=== PATIENT | female | born 1935 | race Caucasian/White ===

== ENCOUNTER 2016-10-12 14:34 | Outpatient (CLI) ==
[2014-03-06 12:50] VITALS: BMI 23.1
[2016-10-12 15:12] LABS: HEMATOCRIT 37.3 % (37.0-47.0); HEMOGLOBIN 12.2 g/dl (12.0-16.0); MEAN CORPUSCULAR HEMOGLOBIN 29.4 pg (27.0-31.0); MEAN CORPUSCULAR HGB CONC 32.7 (31.8-35.4); MEAN CORPUSCULAR VOLUME 89.9 fl (81.0-99.0); RED BLOOD COUNT 4.15 10^6/ul (4.20-5.40); WHITE BLOOD COUNT 8.58 K/ul (4.6-10.2)
[2016-10-12 15:15] LABS: ADD URINE MICROSCOPIC NO; BILIRUBIN,URINE Negative (NEGATIVE); KETONES,URINE Negative (NEGATIVE); LEUKOCYTE ESTERASE ,URINE Negative (NEGATIVE); NITRITE,URINE Negative (NEGATIVE); PROTEIN,URINE Negative (NEGATIVE); URINE, BLOOD Negative (NEGATIVE)
[2016-10-12 15:41] LABS: ALBUMIN 3.9 g/dL (3.4-5.0); ALBUMIN/GLOBULIN RATIO 1.11; ANION GAP 18.2; BILIRUBIN,TOTAL 0.39 mg/dL (0.00-1.20); BUN/CREATININE RATIO 30.37; CALCIUM 9.4 mg/dL (8.2-10.2); CREATININE 1.58 mg/dL (0.60-1.30); PHOSPHORUS 3.2 mg/dL (2.8-4.1); POTASSIUM 4.2 mmol/L (3.5-5.10); TOTAL PROTEIN 7.4 g/dL (5.8-8.1); URIC ACID 9.6 mg/dL (2.4-6.0)
[2016-10-13 08:16] LABS: URINE CREATINE 82.5 mg/dL (Not Estab.)
== END 2016-10-12 14:35 | disposition home or self-care (01) ==
LOC: LAB 14:34
PROVIDERS: ATTEND Nurse Practitioner Family
DX: N18.3 Chronic kidney disease, stage 3 (moderate) (principal)
CPT/HCPCS: 36415; 80053; 81001; 82306; 82570; 83970; 84100; 84156; 84550; 85027

== ENCOUNTER 2017-02-25 16:14 | Outpatient (CLI) ==
[2014-03-06 12:50] VITALS: BMI 23.1
[2017-02-25 16:31] LABS: BASOPHILS # (AUTO) 0.1 K/uL (0-0.2); BASOPHILS % (AUTO) 0.6 % (0.0-3.0); EOSINOPHILS % (AUTO) 0.1 % (0.0-7.0); HEMATOCRIT 36.8 % (37.0-47.0); HEMOGLOBIN 12.2 g/dl (12.0-16.0); IMMATURE GRANULOCYTE % (AUTO) 0.3 % (0.0-5.0); LYMPHOCYTES # (AUTO) 1.1 K/uL (0.60-3.4); LYMPHOCYTES % (AUTO) 11.9 (10.0-50.0); MEAN CORPUSCULAR HGB CONC 33.2 (31.8-35.4); MEAN CORPUSCULAR VOLUME 90.6 fl (81.0-99.0); MONOCYTES # (AUTO) 0.3 K/uL (0.4-2.0); MONOCYTES % (AUTO) 3.2 (0-10); NEUTROPHILS # (AUTO) 7.8 K/ul (2.0-6.9); NEUTROPHILS % (AUTO) 83.9; PLATELET COUNT 348 10^3/uL (140-440); RED BLOOD COUNT 4.06 10^6/ul (4.20-5.40)
[2017-02-25 16:36] LABS: BILIRUBIN,URINE Negative (NEGATIVE); KETONES,URINE Negative (NEGATIVE); LEUKOCYTE ESTERASE ,URINE Negative (NEGATIVE); NITRITE,URINE Negative (NEGATIVE); PROTEIN,URINE Negative (NEGATIVE); URINE, BLOOD Negative (NEGATIVE)
[2017-02-25 16:37] LABS: ADD URINE MICROSCOPIC NO
[2017-02-25 17:09] LABS: ALBUMIN 3.8 g/dL (3.4-5.0); ALBUMIN/GLOBULIN RATIO 0.9; ANION GAP 12.9; BILIRUBIN,TOTAL 0.44 mg/dL (0.00-1.20); BUN/CREATININE RATIO 24.06; CALCIUM 9.9 mg/dL (8.2-10.2); CHOL/HDL RATIO 2.4 (4.5-5.5); CREATININE 1.33 mg/dL (0.60-1.30); POTASSIUM 3.9 mmol/L (3.5-5.10)
== END 2017-02-25 16:15 | disposition home or self-care (01) ==
LOC: LAB 16:14
PROVIDERS: ATTEND General Practice
DX: E11.29 Type 2 diabetes mellitus with other diabetic kidney complication (principal); I10 Essential (primary) hypertension; E55.9 Vitamin D deficiency, unspecified; Z79.899 Other long term (current) drug therapy
CPT/HCPCS: 36415; 80053; 80061; 81001; 82306; 83036; 85025

== ENCOUNTER 2017-04-08 14:56 | Outpatient (CLI) ==
[2014-03-06 12:50] VITALS: BMI 23.1
--- NOTE | 2017-04-08 19:04 | MRI ---
EXAM: Brain MRI without contrast. HISTORY: Chronic migraines. COMPARISON: Head CT 05/03/[address] 12/20/2012. TECHNIQUE: Multiplanar, multisequence MR images were acquired of the brain without contrast. FINDINGS: The midline structures are central and there is no cerebellar tonsillar ectopia. There is a focal area of soft tissue thickening involving the odontoid process and soft tissues anter ior and posterior to the odontoid including the transverse ligament. There is erosion of the odontoid process and effacement of the anterior subarachnoid space without spinal stenosis. There is curvili near focal discontinuity at the base of the odontoid process and mild bright GRE signal on the saenz l gradient echo sequence. On the sagittal T1W sequence, there is focal discontinuity of the anterior cortical margin of the odontoid at the junction of the odontoid process and base of the odontoid. Th ere is intermediate T1 soft tissue signal in the odontoid process and its base that merges with soft tissue signal around the odontoid and transverse ligament. These findings are compatible with a type 2 odontoid fracture that may be subacute. Cervical spine CT scan is advised to further define the carlton johnny. The ventricles, sulci and cisterns are mildly prominent compatible with age related involutional acosta ges. There are no abnormal extra-axial fluid collections. The brain parenchyma has no restricted diffusion to suggest acute hypoperfusion or infarction. There is a chronic lacuna or dilated perivascular space in the right cerebellum. Small T2 hyperintensitie s are present in the supratentorial white matter. These are most numerous in the centrum semiovale a nd along the bodies of the lateral ventricle bilaterally. 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 Pulsation artifact is noted in the posterior fossa on the axial FLAIR se quence. There is no abnormal dark gradient echo signal to suggest intracranial hemorrhage. The corpu s callosum has a normal configuration. The pituitary gland is unremarkable. No intraorbital masses are present. There has been previous lens surgery bilaterally. As visualized , the paranasal sinuses, middle ears and mastoids are unremarkable. Flow voids are present in the major intracranial arteries and dural venous sinuses. IMPRESSION: 1. Partially visualized focal discontinuity is present in the odontoid at its base compatible with a type 2 odontoid fracture that may be subacute. This is associated with surrounding intermediate T1 and T2 soft tissue signal that incorporates the transverse ligament without central canal stenosis. Cervical spine CT scan is advised and neurosurgical consultation may be considered. 2. Age related involutional changes and mild to moderate chronic ischemic small vessel disease. 3. Chronic lacuna right cerebellum. 4. No acute cerebral infarct. Critical results discussed with the emergency room physician Dr. Anthony Robbins at 6:55 p.m.
== END 2017-04-08 14:57 | disposition home or self-care (01) ==
LOC: RAD 14:56
PROVIDERS: ATTEND Emergency Medicine
DX: G43.709 Chronic migraine without aura, not intractable, without status migrainosus (principal)

== ENCOUNTER 2017-04-27 08:24 | Outpatient (CLI) ==
[2014-03-06 12:50] VITALS: BMI 23.1
[2017-04-27 09:10] LABS: CREATININE 1.34 mg/dL (0.60-1.30)
--- NOTE | 2017-04-27 12:58 | MRI ---
EXAM: Cervical spine MRI without contrast. HISTORY: Closed odontoid fracture. COMPARISON: Cervical spine radiographs 12/19/2012, nuclear medicine bone scan 03/01/2016 and brain M RI 04/08/2017. TECHNIQUE: Multiplanar, multisequence MR images were acquired of the cervical spine without contrast . The study is degraded by patient motion on some sequences. Contrast was not administered. FINDINGS: There is no cerebellar tonsillar ectopia. The cervical cord has no abnormal T2 signal or syrinx. There is straightening of the usual cervical lordosis and 2.2 mm anterolisthesis of C3 on C4 and 2.6 mm anterolisthesis of C4 on C5. There has been a partial corpectomy at C6 and there are ACD F's at C5-6 and C6-7. Metallic artifact is present consistent with anterior screw and plate fixation . At C2, there is a type 2 odontoid fracture and focal nodular intermediate T1, bright STIR soft tis ike signal involving the odontoid process which is largely eroded. This extends to the base of the o dontoid. And to the anterior ring of C1. The bright FLAIR soft tissue involves the transverse ligame nt with effacement of the ventral thecal sac at C1 without central canal stenosis. The nodular soft tissue thickening involving the odontoid process is better shown on the current study. However, allo wing for differences is in technique, this is unchanged compared to the prior brain MRI. Cervical spi ne CT scan could better define the fracture. There is osteophytosis with disc space narrowing and de generative endplate changes at C3-4, C4-5 and C7-T1. Visualized lung apices are clear. C1-2: Nodular soft tissue signal is present eroding the odontoid process and this merges with the tr ansverse ligament to efface the left anterior subarachnoid space without impingement on the cord. Th ere is no central canal stenosis. AP diameter of the thecal sac is 11.8 mm. C2-3: The intervertebral disc is normal. There is minor left uncovertebral hypertrophy and mild to moderate left hypertrophic facet arthropathy. There is mild to moderate left neural foraminal stenos is. C3-4: There is anterolisthesis of C3 and C4 which produces a dorsal spondylotic ridge and probable s mall central disc protrusion. Bilateral uncovertebral hypertrophy is present, greater on the left an d there is mild bilateral hypertrophic facet arthropathy. These findings produce mild spinal stenosi s and severe right and moderately severe left neural foraminal stenosis. AP diameter of the thecal s ac is 8.6 mm. C4-5: There is retrolisthesis of C5 with respect to C4 and there is a diffuse disc osteophyte comple x, left uncovertebral hypertrophy and moderate left hypertrophic facet arthropathy. There is mild to moderate right and severe left neural foraminal stenosis. There is minor central canal stenosis. A P diameter of the thecal sac is 9.5 mm. C5-6: There are postoperative ACDF changes. Left uncovertebral hypertrophy is present and there is mild to moderate right and mild left neural foraminal stenosis. There is no central canal stenosis. C6-7: There is a minor central bony ridge and left uncovertebral hypertrophy. There is moderate lef t and mild to moderate right neural foraminal stenosis. C7-T1: The intervertebral disc is normal. There is mild right neural foraminal stenosis. On the sagittal sections, there is a central disc protrusion at T2-3. IMPRESSION: 1. Closed T2 odontoid fracture with intermediate T1, bright STIR soft tissue signal eroding the odon toid process and incorporating the surrounding transverse ligament to efface the ventral thecal sac w ithout central canal stenosis. Clinical considerations include an inflammatory arthritis such as rhe umatoid or psoriatic arthritis or tumor. Given the lack of cancer history, arthritis is favored. The se findings were previously noted on a brain MRI from 04/08/2017. 2. Mild to moderate cervical degenerative spondylosis with minor C4-5 and mild C3-4 spinal stenosis. 3. Small central disc herniation T2-3. 4. C5-6 and C6-7 ACDF's. 5. Multilevel foraminal stenosis. Cervical CT myelography could better define the osseous anatomy.
== END 2017-04-27 08:25 | disposition home or self-care (01) ==
LOC: RAD 08:24
PROVIDERS: ATTEND Nurse Practitioner Family
DX: S12.100A Unspecified displaced fracture of second cervical vertebra, initial encounter for closed fracture (principal); M53.82 Other specified dorsopathies, cervical region; R51 Headache
CPT/HCPCS: 36415; 82565

== ENCOUNTER 2017-08-16 10:40 | Outpatient (CLI) ==
[2014-03-06 12:50] VITALS: BMI 23.1
== END 2017-08-16 10:41 | disposition home or self-care (01) ==
LOC: FCC-LAB 10:40
PROVIDERS: ATTEND General Practice
DX: E11.29 Type 2 diabetes mellitus with other diabetic kidney complication (principal); E55.9 Vitamin D deficiency, unspecified; I10 Essential (primary) hypertension; I48.91 Unspecified atrial fibrillation; N18.9 Chronic kidney disease, unspecified; Z79.899 Other long term (current) drug therapy
CPT/HCPCS: 36415; 80053; 80061; 81001; 82306; 85025

== ENCOUNTER 2017-10-03 10:56 | Outpatient (CLI) ==
[2014-03-06 12:50] VITALS: BMI 23.1
--- NOTE | 2017-10-03 11:55 | MAMMO ---
EXAM: Digital screening mammogram. Tomosynthesis was performed. HISTORY: Screening COMPARISON: 05/03/2014 FINDINGS: Digital MLO and CC views of the right and left breast were performed. Tomosynthesis was performed. Computer aided detection utilized. There are scattered fibroglandular densities. Benign and vascular bilateral calcifications. There is no evidence for mass, asymmetry, distortion, or laine picious calcifications in either breast. IMPRESSION: 1. No evidence of malignancy in the right or left breast. 2. Annual screening mammogram is recommended in one year. BIRADS category 2, benign
== END 2017-10-03 10:57 | disposition home or self-care (01) ==
LOC: RAD 10:56
PROVIDERS: ATTEND General Practice
DX: Z12.31 Encounter for screening mammogram for malignant neoplasm of breast (principal)
CPT/HCPCS: 77067

== ENCOUNTER 2017-10-24 12:43 | Outpatient (CLI) ==
[2014-03-06 12:50] VITALS: BMI 23.1
== END 2017-10-24 12:44 | disposition home or self-care (01) ==
LOC: FCC-LAB 12:43
PROVIDERS: ATTEND General Practice
DX: R07.9 Chest pain, unspecified (principal)
CPT/HCPCS: 36415; 82550; 82553; 84484

== ENCOUNTER 2017-10-24 13:18 | Outpatient (CLI) ==
[2014-03-06 12:50] VITALS: BMI 23.1
== END 2017-10-24 13:19 | disposition home or self-care (01) ==
LOC: CAR 13:18
PROVIDERS: ATTEND General Practice
DX: R07.9 Chest pain, unspecified (principal)
CPT/HCPCS: 93005; 93010

== ENCOUNTER 2017-10-25 12:12 | Observation (INO) ==
[2017-10-25 12:46] VITALS: BMI 21.1
[2017-10-25] MEDS ORDERED: NORCO 10-325 PO PRN (13:43)
[2017-10-25] MEDS: CARDIZEM PO SCH (20:56)
[2017-10-25] MEDS ORDERED: FLEXERIL PO SCH (21:00)
[2017-10-26] MEDS ORDERED: PREDNISONE PO SCH (08:00)
[2017-10-26] MEDS ORDERED: ASPIRIN EC PO SCH (08:00)
[2017-10-26] MEDS ORDERED: IRBESARTAN PO SCH (09:00)
[2017-10-26] MEDS ORDERED: [UNRECOGNIZED DRUG - OTHER] PO SCH (09:00)
[2017-10-26] MEDS ORDERED: HYDROCHLOROTHIAZIDE PO SCH (09:00)
[2017-10-26] MEDS: CARDIZEM PO SCH (09:11)
--- NOTE | 2017-10-26 11:16 | NM ---
EXAM: Myocardial perfusion imaging HISTORY: Chest pain COMPARISON: None. TECHNIQUE: Patient was injected 3.9 mCi of thallium 201 chloride intravenously while at rest. Cardia c SPECT was acquired. Patient was stressed on a treadmill and at peak exercise injected 25.1 mCi of Tc99m Sestamibi intravenously. Another SPECT imaging of the heart was performed. Gated cardiac stud y was acquired. FINDINGS: Post stress images show normal left ventricular cavity size. Isotope distribution is homog eneous throughout the left ventricle myocardium. No evidence of exercise induced reversible ischemia . No fixed defect is identified. The left ventricular ejection fraction is 77% and wall motion is n ormal. IMPRESSION: 1. SPECT myocardial imaging at stress and rest is normal 2. Normal cardiac systolic function and normal wall motion
[2017-10-26 14:18] VITALS: BP 110/60; TEMP 98
--- NOTE | 2017-10-26 15:52 | CONS ---
DATE OF CONSULTATION: 10/25/17 REASON FOR CONSULTATION: Episode of palpitation, nausea and vomiting which last day and half that was nearly 4 weeks ago according to the patient. After that she felt weak for nearly 2 weeks. HISTORY OF PRESENT ILLNESS: The patient was seen and examined by the attending in the office and then hospitalized for further workup. REVIEW OF SYSTEMS: CONSTITUTIONAL: No night sweats. No fatigue, malaise, lethargy. No fever or chills. HEENT: Eyes: No visual changes. No eye pain. No eye discharge. ENT: No sinus drainage. No epistaxis. No sinus pain. No sore throat. No odynophagia. No ear pain. No congestion. RESPIRATORY: No cough, no congestion. No hemoptysis. No shortness of breath. CARDIOVASCULAR: No angina symptoms. No CHF symptoms. No atypical chest pain for CAD. No palpitations. No orthopnea. GASTROINTESTINAL: No abdominal pain. No nausea or vomiting. No diarrhea or constipation. No hematemesis. No hematochezia. GENITOURINARY: No urgency. No frequency. No dysuria. No hematuria. No obstructive symptoms. No discharge. No pain. No significant abnormal bleeding. MUSCULOSKELETAL: No musculoskeletal pain. No joint swelling. NEUROLOGICAL: No headache. No neck pain. No syncope. No seizures. No dizziness. PSYCHIATRIC: Not anxious. No depression. No suicidal thoughts. No homicidal thoughts. SKIN: No rash. No lesions. No wounds. ENDOCRINE: No unexplained weight loss. No weight gain. HEMATOLOGIC/LYMPHATIC: No anemia. No purpura. No petechiae. No prolonged or excessive bleeding. No palpable lymph nodes. MEDICATIONS: Avalide 150-12.5 PO daily Heron 10-325 Po three times a day PRN for pain Flexeril 10mg at bedtime Prednisone 5mg PO daily Aspirin one a day ALLERGIES: Animal dander Morphine Losartan Alcohol Hair dye Seafood. PAST MEDICAL/SOCIAL HISTORY: Hypertension Generalized osteoarthritis SOCIAL/PERSONAL/FAMILY HISTORY: The patient is and lives by herself. She is a nonsmoker and no alcohol abuse and does all activity of daily living. PHYSICAL EXAMINATION: GENERAL: The patient is oriented to time, place and person. VITAL SIGNS: Temperature 98.8, pulse 100, respiratory rate 18, blood pressure 138/76 and pulse ox 99% on room air. HEENT: Head normocephalic, atraumatic. Eyes: Extraocular muscles are intact. Pupils are equal, round and reactive to light and accommodation. Ears: No lesions. Nose appeared normal. Throat: No exudate or erythema. NECK: Supple. No JVP, no carotid bruit. No lymphadenopathy or thyromegaly. LUNGS: Clear to auscultation. Percussion note normal. Chest symmetrical. HEART: S1, S2, no S3. No murmurs. No cyanosis or clubbing. No ascites. Pulses: Dorsalis pedis and posterior tibial pulses +1 bilaterally. ABDOMEN: Soft. Nontender. Bowel sounds active. No CVA tenderness. No mass felt. EXTREMITIES: No edema. Full range of motion of all extremities, equal. NEUROLOGIC: No focal deficit. Cranial nerves II through XII are grossly intact. No headache, no double vision or headache. SKIN: Not dry. Intact. Turgor - normal. LYMPHATIC: No palpable lymph nodes/no lymphedema. MUSCULOSKELETAL: Normal joints with no swelling. Muscle tone is normal. LABS: EKG sinus tachycardiac rate 100 per minute with no acute change. Echocardiogram was done today which showed normal LV contractility borderline LVH with normal valves and normal LV contractility. Hgb 11, hct 33, WBC 8,500 normal differential, BNP is borderline high 4337. CK-MB 8% with total CK normal. Troponin negative. ASSESSMENT: 1. History of palpitation with weakness, no DE or ischemia or coronary insufficiency 2. History of hypertension 3. Elevated BNP 4. Echo findings has showed normal LV contractility with enlarged RV cavity and normal LV function with borderline LVH RECOMMENDATIONS: 1. Will do stress echo sestamibi in the morning 2. Lipid profile 3. Coronary artery disease and angina discussed with patient 4. Will add Cardizem 60mg twice a day 5. Continue Avalide 6. Telemetry to be continued to watch patient's cardiac rhythm 7. T4 TSH to be done if not already ordered. Thanks for referral, will follow. VIVEK
--- NOTE | 2017-10-27 10:22 | STRESSMOD ---
Date of Test: 10/26/17 Ordering Physician: DR. SUSAN GAN Occupation: RETIRED Reason for Exam: CHEST PAIN Smoking History: QUIT 2 YRS AGO Height: 64" Weight: 123 LBS Current Medications: AVALIDE, CYCLOBENZAPRINE, PREDNISONE, ASA, HYDROCODONE Physical Findings: S1, S2, NO S3 Resting EKG: SINUS RHYTHM/ NO ACUTE CHANGES/ PAC'S Target Heart Rate: 119/141 S-T SEGMENT STAGE MPH/GRADE HEART RATE BPM BLOOD PRESSURE mmhg RHYTHM +/- ELEVATION DEPRESSION SYMPTOMS,COMMENTS At Rest 78 132/70 SR X NONE 1 1.7/0% 110 114/60 SR X NONE 2 1.7/5% 3 1.7/10% 4 2.5/12% 5 3.4/14% 118 160/70 SR X FATIGUE Immediately After 118 160/70 SR X FATIGUE Minutes Post Exercise 4:00 80 140/70 SR X FATIGUE Minutes Post Exercise DURATION OF EXERCISE: 5:35 MAXIMUM HEART RATE REACHED: 118 REASON FOR TERMINATION: FATIGUE 96% OXYGEN SATURATION WITH EXERCISE ON ROOM AIR METS 4.0 INTERPRETATION: 1. NO EVIDENCE OF ISCHEMIA BY ST-T WAVE 2. NO CHEST PAIN OR DISCOMFORT 3. FEW PAC'S AND PVC'S 4. BLOOD PRESSURE RESPONSE: NORMAL NORMAL LEFT VENTRICULAR CONTRACTILITY--RESTING AND POST EXERCISE SESTAMIBI TO FOLLOW MTDD
--- NOTE | 2017-10-27 10:24 | ECHOSTRESS ---
Date of Exam: 10/26/17 Ordering Physician: DR. SUSAN GAN Reason for Echo: CHEST PAIN, STRESS TEST--NO ISCHEMIA M-Mode Normal Adult Results LV Dimensions Normal Adult Results AoV Opening excursions >1.6 LVEDD-base- 3.5-5.8 Ao root dimensions 2.0-3.7 LVESD-base- 3.1-4.6 L. Atrium dimensions 1.9-3.8 Post. Wall thickness 0.8-1.1 IV septum (thickness) 0.7-1.2 Post. Wall excursion 0.72-1.3 Septal motion Systolic motion R. Ventricular cavity 1.5-2.0 LVEF 60% Paradoxical septal wall motion 2-D: NORMAL LEFT VENTRICULAR CONTRACTILITY--RESTING AND POST EXERCISE M-MODE: MV: AV: TV: PV: CHAMBER SIZE: WALL MOTION: NORMAL LEFT VENTRICULAR CONTRACTILITY--RESTING AND POST EXERCISE PERICARDIUM: INTERPRETATION: 1. NORMAL LEFT VENTRICULAR CONTRACTILITY--RESTING AND POST EXERCISE MTDD
--- NOTE | 2017-10-27 11:08 | ECHO2D ---
Date of Exam: 10/25/17 Ordering Physician: DR. SUSAN GAN Room #: [id number] Reason for Echo: CHEST PAIN, ABNORMAL CARDIAC LABS M-Mode Normal Adult Results LV Dimensions Normal Adult Results AoV Opening excursions >1.6 >1.6 LVEDD-base- 3.5-5.8 4.3 Ao root dimensions 2.0-3.7 3.0 LVESD-base- 3.1-4.6 L. Atrium dimensions 1.9-3.8 3.9 Post. Wall thickness 0.8-1.1 1.0 IV septum (thickness) 0.7-1.2 1.1 Post. Wall excursion 0.72-1.3 NORMAL Septal motion NORMAL Systolic motion R. Ventricular cavity 1.5-2.0 3.0 LVEF 60% 80% Paradoxical septal wall motion NORMAL 2-D : 2-D M Mode Echocardiogram was performed using apical four chamber and left parasternal long and short axis views. Mitral, tricuspid and aortic valves appear to be normal. Contractility of the left ventricle seems to be normal, so is the cavity size. Left atrial cavity size and aortic root appear to be normal. There is no pericardial effusion. There is no thrombus noted in the left ventricular or left aortic cavity. No mitral valve prolapse noted. M-MODE: MV: NORMAL AV: NORMAL TV: NORMAL PV: CHAMBER SIZE: ENLARGED RIGHT VENTRICLE CAVITY WALL MOTION: NORMAL PERICARDIUM: NORMAL INTERPRETATION: 1. NORMAL VALVES 2. NORMAL LEFT VENTRICULAR CONTRACTILITY 3. ENLARGED RIGHT VENTRICLE CAVITY MTDD
--- NOTE | 2017-10-27 11:18 | CONS ---
DATE OF SERVICE: 10/26/17 CONSULT FOLLOWUP SUBJECTIVE: 81 year old white female seen to rule out any acute cardiovascular event past three to four weeks. The patient has no symptoms at present time of coronary insufficiency or CHF. REVIEW OF SYSTEMS: CONSTITUTIONAL: No night sweats. No fatigue, malaise, lethargy. No fever or chills. HEENT: Eyes: No visual changes. No eye pain. No eye discharge. ENT: No runny nose. No epistaxis. No sinus pain. No sore throat. No odynophagia. No ear pain. No congestion. RESPIRATORY: No cough, no congestion. No hemoptysis. CARDIOVASCULAR: No angina symptoms. No CHF symptoms. No atypical chest pain for CAD. No palpitations. No shortness of breath. GASTROINTESTINAL: No abdominal pain. No nausea or vomiting. No diarrhea or constipation. No hematemesis. No hematochezia. GENITOURINARY: No urgency. No frequency. No dysuria. No hematuria. No obstructive symptoms. No discharge. No pain. No significant abnormal bleeding. MUSCULOSKELETAL: No musculoskeletal pain. No joint swelling. No arthritis. NEUROLOGICAL: No headache. No neck pain. No syncope. No seizures. No dizziness. PSYCHIATRIC: Not anxious. No depression. No suicidal thoughts. No homicidal thoughts. SKIN: No rash. No lesions. No wounds. ENDOCRINE: No unexplained weight loss. No weight gain. HEMATOLOGIC/LYMPHATIC: No anemia. No purpura. No petechiae. No prolonged or excessive bleeding. No palpable lymph nodes. PHYSICAL EXAMINATION: GENERAL: The patient is oriented to time, place and person. VITAL SIGNS: Temperature 98, pulse 69, respiratory rate 16, blood pressure 132/ 80 and pulse ox 99%. HEENT: Head normocephalic, atraumatic. Eyes: Extraocular muscles are intact. Pupils are equal, round and reactive to light and accommodation. Ears: No lesions. Nose appeared normal. Throat: No exudate or erythema. NECK: Supple. No JVD, no carotid bruit. No lymphadenopathy or thyromegaly. LUNGS: Decreased breath sounds but clear to auscultation. Percussion note normal. Chest symmetrical. HEART: S1, S2, no S3. No murmurs. No cyanosis or clubbing. No ascites. Pulses: Dorsalis pedis and posterior tibial pulses +1 to +2 both sides. ABDOMEN: Soft. Nontender. Bowel sounds active. No CVA tenderness. No mass felt. EXTREMITIES: No edema. Full range of motion of all extremities, equal. NEUROLOGIC: No focal deficit. Cranial nerves II through XII are grossly intact. No headache, no double vision or headache. SKIN: Not dry. Intact. Turgor - normal. LYMPHATIC: No palpable lymph nodes/no lymphedema. MUSCULOSKELETAL: Normal joints with no swelling. Muscle tone is normal. LABS: Hgb 10.2, hct 31, WBC 8,000 normal differential, creatinine 1.3, BUN 32. The patient's echo showed normal LV contractility, normal LV size and the patient had enlarged RV cavity. Dobutamine stress echo was performed and sestamibi report is pending but the patient's stress echo was negative for ischemia. So far the cardiac workup is negative for any coronary insufficiency or CHF. CONDITION: Stable. RECOMMENDATIONS: 1. Cardizem was added 60mg twice a day. 2. The patient's heart rate is a lot better and patient had PAC's and few PVC' s with exercise. MTDD
--- NOTE | 2017-10-31 14:44 | SSS ---
DATE OF SERVICE: 10/25/17 AND 10/26/17 CHIEF COMPLAINT: History of chest pain, nausea, vomiting, weakness and diaphoresis. HISTORY OF PRESENT ILLNESS: The patient came to the office for regular follow up on 10/25/2017. In the course of the office visit the patient mentioned that she experienced pain across the chest that woke her up at midnight accompanied by nausea, vomiting and weakness with diaphoresis. Her blood pressure was high , so she took another blood pressure medication. The pain subsided after about an hour and a half. I asked the patient if she did go to the emergency room and she told me that she did not. This patient is hypertensive on medication. The patient was alert and oriented at the office without any chest pain. The patient was sent for EKG, Troponin, CK, MB today. The EKG was abnormal, but no acute myocardial ischemia. The MB was elevated 6.5. The patient was contacted on the same day for discussion of results, as well as probable admission. I did talk to her and she would not want to come back to the hospital, but would do it the next day. I had advised if she were to ever have the same symptoms that she had some two weeks ago, that she should come to the emergency room immediately, otherwise she should come to the hospital tomorrow for admission. PAST PERSONAL HISTORY: The patient had temporal arteritis and is taking low dose Prednisone 5 mg daily, Migraine headaches, history of cardiac arrhythmia, degenerative joint disease of hips, overactive bladder, hypertension, chronic back pain. The patient had compression fracture of T12, pain in the left hip, degenerative joint disease of both hips. Cervical discectomy some 20 years ago , cholecystectomy, cataract extraction, appendectomy. History of chronic kidney disease stage III. FAMILY HISTORY: Mother had heart disease, diabetes in the family. SOCIAL HISTORY: The patient is a and resides alone and is self sufficient. She stopped smoking several years ago and no alcoholic beverages. MEDICATIONS: Prior to this admission are the following: Avalide 150/12.5 mg one daily Hydrocodone/APAP 10/325 mg one three times a day as needed. Flexeril 10 mg at bedtime Prednisone 5 mg daily Aspirin 81 mg daily ALLERGIES: Morphine, the patient never had taken Morphine, but she wanted Morphine added to her list of allergic medications. She claimed that some members of the family were allergic to Morphine. Morphine did alert their mental status. Losartan and verified reaction. Animal dander, rash severe with angioedema, swelling of the throat. The patient also claimed to have some reaction to seafood, hair dye and alcohol hand field research associate. Allergic to the alcohol hand field research associate is described as severe with swelling of the throat and ended up in the emergency room. REVIEW OF SYSTEMS: CONSTITUTIONAL: The patient has no fever, no chills and no weakness. STRAP BUCKLER MACHINE: The patient has history of migraine headaches, as well as temporal arteritis, but no seizure disorder history and no syncope. VISUAL: Denies any double vision, blurred vision or loss of vision. AUDITORY: Hearing is adequate. Denies any tinnitus, but had some dizziness but that had resolved. No pain or drainage. RESPIRATORY: Denies any cough and no shortness of breath. CARDIOVASCULAR: The patient had a history of pain across the anterior chest accompanied by nausea and vomiting and diaphoresis, plus weakness. This lasted for about an hour and a half. The patient also mentioned that her blood pressure during that time was elevated and she took one more blood pressure medication. GASTROINTESTINAL: Denies any nausea or vomiting now. No dysphagia, no abdominal pain and change in bowel habits. GENITOURINARY: Denies any pain on urination. The patient previously had urgency. She is not complaining of it now. MUSCULOSKELETAL: The patient has pain in both hips. She also has pain in the back, which is a chronic problem. She is taking a narcotic analgesic medication for the back pain. ENDOCRINE: Negative. INTEGUMENT: Denies any rash or any pruritus. HEMATOLOGIC: No history of prolonged bleeding. PSYCHIATRIC: Affect is normal. PHYSICAL EXAMINATION: GENERAL: We have a 81 year old female admitted to the hospital because of history of chest pain, recent. This appears to be angina and maybe unstable, although it had resolved. The patient's MB fraction was elevated on 10/25/2017 and the heart rate was elevated. EKG was abnormal, but no signs of acute ischemic changes. VITAL SIGNS: On admission, temperature 98.8, pulse 116 per minute, slightly irregular, blood pressure left 137/78, right 139/71, respiratory rate 20, oxygen saturation 99 on room air. She is 5'4", weighing 123 pounds, BMI 21.1. HEAD: Unremarkable. Scalp with no active dermatitis. FACE: Symmetrical and equal with no facial weakness and no redness or swelling. No tenderness to palpation in the frontal or maxillary sinus areas under pressure. EYES: Pupils equal/reactive to light. Conjunctivae not pale. Sclerae not icteric. MOUTH: Unremarkable. THROAT: No inflammation, tumors or exudate. NECK: No masses. No adenitis. No bruit. No tenderness. No rigidity. CHEST: Essentially symmetrical and equal with good expansion and no remarkable tenderness. LUNGS: Breath sounds are heard in both sides, diminished. No rales or wheezing. HEART: Audible and irregular and slightly tachycardic. No murmurs. ABDOMEN: Flat, soft with no remarkable tenderness. No guarding. No masses. No bruit. EXTERNAL GENITALIA: Not examined. PELVIC AND RECTAL: Not performed. LOWER EXTREMITIES: Symmetrical and equal with no significant edema. Pedal pulses present, but diminished. UPPER EXTREMITIES: Symmetrical and equal. ASSESSMENT: 1. ANGINA 2. HYPERTENSION, CONTROLLED 3. HISTORY OF TEMPORAL ARTERITIS ON PREDNISONE 4. CARDIAC ARRHYTHMIA AND TACHYCARDIA CAUSE UNDETERMINED 5. HISTORY OF ANXIETY 6. HISTORY OF CERVICAL DISCECTOMY 7. HISTORY OF COMPRESSION FRACTURE T12 8. HISTORY OF MIGRAINE HOSPITAL COURSE: The patient while in the hospital was alert, oriented times four, ambulatory without any chest pain. She was seen by Dr. Pitt on cardiology consultation. He added Cardizem 60 mg twice a day because of the tachycardia. Heart rate remained at 116 until 05:27 p.m. on 10/25/2017. The heart rate dropped to 78. The heart rate has remained about the same and the lowest heart rate was 69. Blood pressure remained stable, systolic, as well as diastolic did go down to 110/58 at 10 o'clock on 10/26/2017 and 110/60 at 2 p.m. on 10/26/2017. The CBC showed mild to moderate anemia. SED rate 29, CMP showed a BUN of 30, creatinine of 1.55, E GFR 32 and BUN the next day was 32 with creatinine of 1.35 and E GFR of 38. CKMB is 8. Total creatinine kinase was 278. The Troponin was normal at less than 0.0100. The BNP was slightly elevated 437. Lipids were essentially unremarkable. Triglycerides 70, cholesterol total 199, LDL 92, VLDL 14, HDL 93, cholesterol HDL ratio 2.1, TSH 0.673, free T4 1.13. Stress sestamibi was interpreted as normal at rest and exercise. Normal cardiac systolic function and normal wall motion. I talked to Dr. Pitt, the consulting systems mechanic whether the patient can be discharged and he told me yes. I believe he had done an echocardiogram, but I do not see any report in my computer screen. The patient at discharge is alert, ambulatory without any chest pain. LUNGS: Clear to auscultation in both sides, although diminished. HEART: Audible and regular. No longer tachycardic. VITAL SIGNS: Before discharge at 2 p.m. showed a temperature of 98, pulse 74, blood pressure 110/60, respiratory rate 20, oxygen saturation 99 at room air. She is then discharged and instructed to resume all of her medications and new prescription of Cardizem 30 mg twice a day instead of 60 and she is to see me in a week at the office. She is also further advised to contact the office if she has any concerns, but if she were to have any recurrence of the same symptoms that she had two weeks ago that she should promptly go to the emergency room. FINAL DIAGNOSIS: 1. CHEST PAIN WITH ACCOMPANYING SYMPTOMS INDICATIVE OF ANGINA WITH NEGATIVE WORKUP 2. HISTORY OF HYPERTENSION, CONTROLLED. 3. HISTORY OF TEMPORAL ARTERITIS ON MEDICATION 4. HISTORY OF CHRONIC BACK PAIN 5. HISTORY OF CERVICAL DISC SURGERY PROGNOSIS: Guarded. MTDD
== END 2017-10-26 16:45 | disposition home or self-care (01) ==
LOC: MEDSURG A 12:12 → INTOOBSV 12:12
PROVIDERS: ADMIT General Practice; ATTEND General Practice
DX: I20.9 Angina pectoris, unspecified (principal); I10 Essential (primary) hypertension; I51.7 Cardiomegaly; R00.2 Palpitations; R00.0 Tachycardia, unspecified; M31.6 Other giant cell arteritis; R79.89 Other specified abnormal findings of blood chemistry; R11.2 Nausea with vomiting, unspecified; R61 Generalized hyperhidrosis; F41.9 Anxiety disorder, unspecified; G43.909 Migraine, unspecified, not intractable, without status migrainosus; Z87.891 Personal history of nicotine dependence; Z98.1 Arthrodesis status; Z79.899 Other long term (current) drug therapy
CPT/HCPCS: 36415; 80053; 80061; 82550; 82553; 83880; 84439; 84443; 84484; 85025; 85651; 93005; 93010

== ENCOUNTER 2017-11-10 05:23 | Emergency (ER) ==
[2017-11-10] MEDS ORDERED: DECADRON 4 MG/ML SDV IM STA (05:30)
[2017-11-10 05:31] VITALS: BP 120/72; TEMP 97.8; BMI 27.4
[2017-11-10] MEDS ORDERED: BENADRYL IM STA (05:31)
[2017-11-10] MEDS ORDERED: BENADRYL ONE (05:33)
[2017-11-10] MEDS ORDERED: DECADRON 4 MG/ML SDV ONE (05:33)
--- NOTE | 2017-11-10 05:34 | ED.PDOC ---
General ED Provider: Dr. BULMARO LOAIZA-ER Chief Complaint: Allergic Reaction Stated Complaint: geo got this itchy rash Time Seen by Physician: 05:32 Mode of Arrival: Walk-In Information Source: Patient Exam Limitations: No limitations Primary Care [facility] Nursing and Triage Documentation Reviewed and Agree: Yes Reviewed sepsis parameters & appropriate labs ordered?: Yes System Inflammatory Response Syndrome: Not Applicable Sepsis Protocol: For patient's 13 years and over: Temp is 96.8 and below OR 101 and greater Pulse >90 BPM Resp >20/minute Acutely Altered Mental Status Are patient's symptoms suggestive of a new infection, such as: -Pneumonia -Skin, Soft Tissue -Endocarditis -UTI -Bone, Joint Infection -Implantable Device -Acute Abdominal Infection -Wound Infection -Meningitis -Blood Stream Catheter Infection -Unknown Skin Complaint Exam - Skin Rash/Itching Complaint/Exam Onset/Duration: this am Symptoms Are: Still present Initial Severity: Mild Current Severity: Moderate Location: trunk arms and neck Potential Exposures: Reports: Medicines, Plants, Pet exposure Aggravating: Reports: None Alleviating: Reports: None Associated Signs and Symptoms: Denies: Difficulty breathing, Fever, Chills Skin Findings: Present: Urticaria Differential Diagnoses: Allergic Reaction Review of Systems - Review Of Systems Constitutional: Reports: No symptoms Eyes: Reports: No symptoms Ears, Nose, Mouth, Throat: Reports: No symptoms Respiratory: Reports: No symptoms Cardiac: Reports: No symptoms GI: Reports: No symptoms : Reports: No symptoms Musculoskeletal: Reports: No symptoms Skin: Reports: Rash Neurological: Reports: No symptoms Endocrine: Reports: No symptoms Hematologic/Lymphatic: Reports: No symptoms All Other Systems: Reviewed and Negative Past Medical History - Past Medical History Previously Healthy: No Endocrine: Reports: Unknown Cardiovascular: Reports: Unknown Respiratory: Reports: Unknown Hematological: Reports: Unknown Gastrointestinal: Reports: Unknown Genitourinary: Reports: Unknown Neuro/Psych: Reports: Unknown Musculoskeletal: Reports: Unknown Cancer: Reports: Unknown Last Menstrual Period: NONE - Surgical History General Surgical History: Reports: Unknown - Family History Family History: Reports: Unknown - Social History Smoking Status: Former smoker Hx Substance Use: No Alcohol Screening: None - Immunizations Tetanus Shot up to Date: Yes Physical Exam - Physical Exam Appearance: Well-appearing, No pain distress, Well-nourished Eyes: MICHAEL, EOMI, Conjunctiva clear ENT: Ears normal, Nose normal, Oropharynx normal Neck: Supple Respiratory: Airway patent, Breath sounds clear, Breath sounds equal, Respirations nonlabored Cardiovascular: RRR, Pulses normal, No rub, No murmur GI/: Soft, Nontender, No masses, Bowel sounds normal, No Organomegaly Musculoskeletal: Normal strength, ROM intact, No edema, No calf tenderness Skin: Warm, Dry, Normal color Neurological: Sensation intact, Motor intact, Reflexes intact, Cranial nerves intact, Alert, Oriented Psychiatric: Affect appropriate, Mood appropriate, Anxious Re-Evaluation - Re-Evaluation Time of Re-Evaluation: 06:08 Status: Improved Vital Signs Stable: Yes Pain Level: 0 Appearance: NAD Lungs: Clear Skin: Warm and Dry Neuro: Alert and Oriented X3 CV: RRR Additional Comments: itchying and rash iimproved--no sob or wheezing Critical Care Note - Critical Care Note Total Time (mins): 0 Course - Course Orders, Labs, Meds: Orders Category Date Time Status Dexamethasone 4 mg/ml Inj [Decadron 4 mg/ml Sdv] MEDS 11/10/17 05:33 Discontinued 8 mg .ROUTE .STK-MED ONE Dexamethasone 4 mg/ml Inj [Decadron 4 mg/ml Sdv] MEDS 11/10/17 05:30 Stat 8 mg IM ONCE STA Diphenhydramine Inj [Benadryl] MEDS 11/10/17 05:33 Discontinued 50 mg .ROUTE .STK-MED ONE Diphenhydramine Inj [Benadryl] MEDS 11/10/17 05:31 Stat 50 mg IM ONCE STA Medications Discontinued Medications Generic Name Dose Route Start Last Admin Trade Name Lukaszq PRN Reason Stop Dose Admin Dexamethasone Sodium Phosphate 8 mg 11/10/17 05:30 11/10/17 05:35 Decadron 4 Mg/Ml Sdv IM 11/10/17 05:31 8 mg ONCE STA Administration Diphenhydramine HCl 50 mg 11/10/17 05:31 11/10/17 05:35 Benadryl IM 11/10/17 05:32 50 mg ONCE STA Administration Vital Signs: Temp Pulse Resp BP Pulse Ox 11/10/17 05:24 97.8 F 77 15 120/72 95 Departure - Departure Time of Disposition: 06:08 Disposition: HOME SELF-CARE Discharge Problem: Pruritic rash Instructions: Urticaria (ED) Condition: Good Pt referred to PMD for follow-up: Yes IPMP verified?: No Additional Instructions: increase prednisone to 40mgx 3 days then 20mg x 2 days then 10mg x 2 days then resume 5mg prednisone as she takes at home --benadrul 50mg qid --f/u with your doctor Allergies/Adverse Reactions: Allergies animal dander Allergy (Severe, Unverified 11/10/17 05:31) Rash, thoat swells morphine Allergy (Unverified 11/10/17 05:31) Pt states wants Morphine added as an allergy. States has never taken Morphine, but knows of family members who have been adm. Morphine and it altered their mental status severly. losartan Adverse Reaction (Unverified 11/10/17 05:31) alcohol hand application dba Allergy (Severe, Uncoded 11/10/17 05:31) Throat swelled, went to ER hair dye Adverse Reaction (Uncoded 11/10/17 05:31) seafood Adverse Reaction (Uncoded 11/10/17 05:31) Home Medications: Ambulatory Orders Irbesartan/Hydrochlorothiazide [Avalide 150-12.5 mg Tablet] 1 tab PO DAILY 03/06 Aspirin [Aspirin EC] 81 mg PO DAILYWM 10/25/17 Diltiazem HCl [Cardizem] 30 mg PO Q12HR #60 tablet 10/26/17 Disposition Discussed With: Patient
== END 2017-11-10 06:16 | disposition home or self-care (01) ==
LOC: ED 05:23
DX: L50.9 Urticaria, unspecified (principal)
CPT/HCPCS: 96372; 99282

== ENCOUNTER 2018-01-30 11:12 | Outpatient (CLI) ==
--- NOTE | 2018-01-30 12:21 | DI ---
EXAM: Radiographs, left hand HISTORY: Initial presentation for left hand trauma due to a fall. COMPARISON: None available. TECHNIQUE: Three views. FINDINGS/IMPRESSION: Mildly displaced fractures through the proximal aspect of the fifth proximal ph alanx is seen best on the oblique view. 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 No localized soft tissue abnor mality is detected.
--- NOTE | 2018-01-30 12:22 | DI ---
EXAM: Radiographs, left fifth finger HISTORY: Initial presentation for left fifth finger trauma. COMPARISON: None available. TECHNIQUE: Three views. FINDINGS/IMPRESSION: Mildly displaced fracture through the proximal metaphysis of the fifth proximal phalanx noted without intra-articular extension or dislocation. Severe arthritic changes of the fifth IP joints noted.
--- NOTE | 2018-01-30 12:27 | DI ---
EXAM: Radiographs, left shoulder HISTORY: Initial presentation for left shoulder trauma. COMPARISON: 12/19/2012. TECHNIQUE: Three views. FINDINGS/IMPRESSION: No acute fracture or dislocation identified. Ill-defined sclerosis and cystic change in the glenoid and subchondral humeral head are most likely due to advanced degenerative change in less likely avasc ular necrosis. Superior migration of the humeral head suggests rotator cuff pathology. Moderate acr omioclavicular arthritic changes also present.
--- NOTE | 2018-01-30 12:27 | DI ---
Exam: Left elbow three-view three-view. HISTORY: Unspecified fall, initial encounter. Comparison: Left humerus 12/19/2012. Findings: Four images of the left elbow demonstrate no acute fracture or dislocation. There is no o sseous erosion or radiodense foreign body. There is no evidence of joint effusion. No focal soft ti ssue swelling is seen. Impressions: No acute fracture or dislocation involving the left elbow.
--- NOTE | 2018-01-30 12:28 | DI ---
EXAM: Facial bone series four views HISTORY: Fall. FINDINGS: No convincing radiographic evidence of displaced fracture or acute bony deformity. Orbits have normal contour. The paranasal sinuses appear clear. IMPRESSION: No fractures identified.
--- NOTE | 2018-01-30 12:34 | CT ---
EXAM: CT cervical spine without contrast. HISTORY: Initial presentation for neck trauma due to a fall. COMPARISON: 04/27/2017, 12/19/2012. TECHNIQUE: Multiple axial images of the cervical spine were obtained without intravenous contrast. Images were reformatted in the sagittal and coronal planes. FINDINGS: Anterior plate and screw fixation seen from C5-C7 with C6 corpectomy and graft placement. There is fracture of the right-sided C5 screw best seen on sagittal image 38 which was present on th e radiograph from 12/19/2012. Hardware is otherwise intact. There is osseous incorporation across t he graft at the C5 level with less incorporation across the C7 level. There is approximately 0.2 cm anterolisthesis of C3 on C4 and 0.3 cm anterolisthesis of C4 on C5. 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 No acute fracture identified. Mild spinal stenosis at C4-5 due to anterolisthesis noted. Mult ilevel neural foraminal narrowing due to uncovertebral hypertrophy and facet arthropathy is mild at C 2-3 on the left, severe at C3-4 bilaterally, moderate on the right and severe on the left at C4-5 and moderate at C5-6 and C6-7 bilaterally. Paravertebral soft tissue are without acute abnormality. At herosclerotic calcifications present. IMPRESSION: 1. No acute fracture. 2. Chronic ununited dens fracture. 3. Stable postoperative changes at C5-C7. 4. Stable multilevel degenerative changes.
== END 2018-01-30 11:13 | disposition home or self-care (01) ==
LOC: RAD 11:12
PROVIDERS: ATTEND General Practice
DX: I48.91 Unspecified atrial fibrillation (principal); S00.83XA Contusion of other part of head, initial encounter; S69.92XA Unspecified injury of left wrist, hand and finger(s), initial encounter; S49.92XA Unspecified injury of left shoulder and upper arm, initial encounter; S19.9XXA Unspecified injury of neck, initial encounter; W19.XXXA Unspecified fall, initial encounter
CPT/HCPCS: 93005; 93010

== ENCOUNTER 2018-02-09 09:47 | Outpatient (CLI) ==
--- NOTE | 2018-02-09 10:33 | CT ---
EXAM: CT of the head without contrast History: Head trauma. Comparison: Head CT 05/03/2014 Technique: Multiplanar CT images through the head were obtained without the administration of IV con trast Findings: The visualized paranasal sinuses and mastoid air cells are clear in general. No acute rolly varial abnormalities. New Intracranially the ventricular and cisternal spaces are normal in size, shape and configuration for a patient of this age. No dominant mass or midline shift. No hydrocephalous. No acute intracranial hemorrhage or abnormal extraaxial fluid collections. Impression: No acute intracranial process
== END 2018-02-09 09:48 | disposition home or self-care (01) ==
LOC: RAD 09:47
PROVIDERS: ATTEND General Practice
DX: G43.709 Chronic migraine without aura, not intractable, without status migrainosus (principal); W19.XXXA Unspecified fall, initial encounter

== ENCOUNTER 2018-07-06 15:59 | Outpatient (CLI) ==
--- NOTE | 2018-07-07 08:50 | DI ---
EXAM: Two views of the left hip. History: Left hip pain. Comparison: Left hip radiograph 03/06/2014 Findings: Nonspecific pelvic calcifications. No acute fracture or dislocation. Grossly intact left total hip arthroplasty hardware. Degenerative changes within the lower lumbar spine. Impression: No acute osseous abnormality
== END 2018-07-06 16:00 | disposition home or self-care (01) ==
LOC: RAD 15:59
PROVIDERS: ATTEND General Practice
DX: M25.552 Pain in left hip (principal)

== ENCOUNTER 2020-11-21 22:19 | Observation (INO) ==
[2020-11-21 22:58] LABS: BASOPHILS # (AUTO) 0.1 K/uL (0-0.2); BASOPHILS % (AUTO) 0.6 % (0.0-3.0); EOSINOPHILS # (AUTO) 0.6 K/ul (0.0-0.7); EOSINOPHILS % (AUTO) 4.9 % (0.0-7.0); HEMOGLOBIN 12.1 g/dl (12.0-16.0); IMMATURE GRANULOCYTE % (AUTO) 0.4 % (0.0-5.0); LYMPHOCYTES # (AUTO) 2.6 K/uL (0.60-3.4); LYMPHOCYTES % (AUTO) 22.7 (10.0-50.0); MEAN CORPUSCULAR HEMOGLOBIN 28.9 pg (27.0-31.0); MEAN CORPUSCULAR HGB CONC 31.8 (31.8-35.4); MEAN CORPUSCULAR VOLUME 90.9 fl (81.0-99.0); MONOCYTES # (AUTO) 0.9 K/uL (0.4-2.0); MONOCYTES % (AUTO) 7.5 (0-10); NEUTROPHILS # (AUTO) 7.3 K/ul (2.0-6.9); NEUTROPHILS % (AUTO) 63.9 % (42.2-75.2); PLATELET COUNT 360 10^3/uL (140-440); RED BLOOD COUNT 4.18 10^6/ul (4.20-5.40); WHITE BLOOD COUNT 11.36 K/ul (4.6-10.2)
[2020-11-21 23:12] LABS: ALANINE AMINOTRANSFERASE 26.7 U/L (0-35); ALBUMIN 4.19 g/dL (3.5-5.0); ALKALINE PHOSPHATASE 139.1 U/L (53-141); ASPARTATE AMINO TRANSFERASE 49.1 U/L (14-36); BILIRUBIN,TOTAL 0.35 mg/dL (0.2-1.3); BLOOD UREA NITROGEN 39.4 mg/dL (7-17); CALCIUM 9.1 mg/dL (8.4-10.2); CARBON DIOXIDE 33.4 mmol/L (22-30.0); CHLORIDE 100.2 mmol/L (98-107); CREATINE KINASE 179.8 U/L (30-135); CREATININE 1.41 mg/dL (0.60-1.30); GLUCOSE 110.8 mg/dL (74-106); POTASSIUM 3.79 mmol/L (3.5-5.1); SODIUM 139.2 mmol/L (134.5-145); TOTAL PROTEIN 7.56 g/dL (6.3-8.2)
[2020-11-21 23:23] LABS: TROPONIN I 0.034 ng/ml (0.0000-0.120)
[2020-11-21 23:27] LABS: CREATINE KINASE MB 4.78 ng/ml (0.0-2.38)
--- NOTE | 2020-11-21 23:34 | ED.PDOC ---
General ED Provider: Dr. BULMARO MALONE Chief Complaint: Non-specific Complaint Stated Complaint: my chest felt like it was going to explode Time Seen by Provider: 11/21/20 22:48 Mode of Arrival: Walk-In Information Source: Patient Primary Care Provider: KEVYN GRIGSBY Nursing and Triage Documentation Reviewed and Agree: Yes Does patient meet sepsis criteria?: No System Inflammatory Response Syndrome: Not Applicable Sepsis Protocol: For patient's 13 years and over: Temp is 96.8 and below OR 101 and greater Pulse >90 BPM Resp >20/minute Acutely Altered Mental Status Are patient's symptoms suggestive of a new infection, such as: -Pneumonia -Skin, Soft Tissue -Endocarditis -UTI -Bone, Joint Infection -Implantable Device -Acute Abdominal Infection -Wound Infection -Meningitis -Blood Stream Catheter Infection -Unknown Cardiovascular Complaint Exam Chest Pain Complaint/Exam Onset: Gradual Duration: 30 min Symptoms Are: Resolved Initial Severity: Mild Current Severity: Moderate Location: Reports Discrete Character: Reports Dull and Aching Alleviating: Reports None Prior Care for this Complaint: No Recent Stress Test: No Recent Echo/LV Function: No JVD Present: No Subcutaneous Emphysema Present: No Diminshed Breath Sounds: No Reproducible Chest Wall Pain: No Bilateral Pulses Present: Yes Unequal Pulses Noted: No Quality Indicator For Non-Traumatic Chest Pain/Syncope: EKG Performed Review of Systems Review Of Systems Constitutional: Reports No symptoms Eyes: Reports No symptoms Ears, Nose, Mouth, Throat: Reports No symptoms Respiratory: Reports No symptoms Cardiac: Reports Chest pain and Palpitations GI: Reports No symptoms : Reports No symptoms Musculoskeletal: Reports No symptoms Skin: Reports No symptoms Neurological: Reports No symptoms and Anxiety Endocrine: Reports No symptoms Hematologic/Lymphatic: Reports No symptoms All Other Systems: Reviewed and Negative [facility] Medical History (Updated 11/22/20 @ 00:06 by BULMARO MALONE MD) Bone fracture Cardiac arrhythmia Headache, migraine Hypertension Social History Smoking and tobacco status: Former smoker Alcohol intake: never Counseling given: No Substance use type: does not use Counseling given: No Rosie/buddhist: RESTORATION Special rosie needs: No Agree to transfusion: No Household members: none Housing: house Marital status: W / Lives independently: Yes service: No FDC: No Current occupational status: retired Current occupational exposures/hazards: No History of recent travel: No Sexually active: No Do you think of yourself as: straight/heterosexual Current gender identity: female Female Reproductive History Menstrual Age of Menarche: 17 Hx Hysterectomy: No Hx Tubal Ligation: No Physical Exam Physical Exam Appearance: Reports Well-appearing Ill-appearing: Not Applicable Pain Distress: Not Applicable Eyes: Reports MICHAEL, EOMI and Conjunctiva clear ENT: Reports Ears normal, Nose normal and Oropharynx normal Neck: Supple Respiratory: Reports Airway patent, Breath sounds clear and Breath sounds equal Cardiovascular: Reports RRR, Pulses normal, No rub and No murmur GI/: Reports Soft, Nontender, No masses, Bowel sounds normal and No Organomegaly Musculoskeletal: Reports Normal strength, ROM intact, No edema and No calf tenderness Skin: Reports Warm, Dry and Normal color Neurological: Reports Sensation intact, Motor intact, Reflexes intact, Cranial nerves intact, Alert and Oriented Psychiatric: Reports Affect appropriate and Mood appropriate Re-Evaluation Re-Evaluation Time of Re-Evaluation: 00:04 Status: Improved Vital Signs Stable: Yes Pain Level: 0 Appearance: NAD Lungs: Clear Skin: Warm and Dry Neuro: Alert and Oriented X3 CV: RRR Physician Notification Case Discussed Physician Notified: dr grigsby Time of Notification: 00:04 Critical Care Note Critical Care Note Total Critical Care Time (mins): 0 Course Course Hematology/Chemistry: 11/21/20 22:56 11/21/20 22:56 Orders, Labs, Meds: Lab Review 11/21/20 11/21/20 22:56 22:56 WBC 11.36 H RBC 4.18 L Hgb 12.1 Hct 38.0 MCV 90.9 MCH 28.9 MCHC 31.8 RDW Coeff of Chucky 15.0 H Plt Count 360 Immature Gran % (Auto) 0.4 Neut % (Auto) 63.9 Lymph % (Auto) 22.7 Polk % (Auto) 7.5 Eos % (Auto) 4.9 Baso % (Auto) 0.6 Neut # (Auto) 7.3 H Lymph # (Auto) 2.6 Polk # (Auto) 0.9 Eos # (Auto) 0.6 Baso # (Auto) 0.1 Immature Gran # (Auto) 0.0 Sodium 139.2 Potassium 3.79 Chloride 100.2 Carbon Dioxide 33.4 H Anion Gap 9.39 BUN 39.4 H Creatinine 1.41 H Estimated GFR (MDRD) 36.00 BUN/Creatinine Ratio 27.94 Glucose 110.8 H Calcium 9.10 Total Bilirubin 0.35 AST 49.1 H ALT 26.7 Alkaline Phosphatase 139.1 Total Creatine Kinase 179.8 H CK-MB (CK-2) 4.780 H CK-MB (CK-2) % 2.6500 Troponin I 0.034 Total Protein 7.56 Albumin 4.19 Globulin 3.37 Albumin/Globulin Ratio 1.24 Orders Category Date Time Status EKG-(ED ONLY) Stat CARDIO 11/21/20 22:47 Completed ED HUMANITIES COORDINATOR APPLIED .ONCE EMERGENCY 11/21/20 22:47 Active CBC W/ AUTO DIFF Stat LAB 11/21/20 22:56 Completed COMPREHENSIVE METABOLIC PANEL Stat LAB 11/21/20 22:56 Completed CREATINE KINASE Stat LAB 11/21/20 22:56 Completed RESPIRATORY PANEL 2.1 (PCR) Stat LAB 11/21/20 Ordered TROPONIN I Stat LAB 11/21/20 22:56 Completed CHEST, 1V AP ONLY Stat RADS 11/21/20 22:47 Completed CHEST, 1V AP ONLY Stat RADS 11/21/20 23:53 Stop Req Vital Signs: Temp Pulse Resp BP Pulse Ox 11/21/20 22:19 98.1 F 77 24 138/62 98 HUMPHREY Risk Score HUMPHREY Risk Score: Risk Score Odds of by 30D 0 0.1 (0.1-0.2) 1 0.3 (0.2-0.3) 2 0.4 (0.3-0.5) 3 0.7 (0.6-0.9) 4 1.2 (1.0-1.5) 5 2.2 (1.9-2.6) 6 3.0 (2.5-3.6) 7 4.8 (3.8-6.1) Discharge Plan Discharge Patient Disposition: PLACED OBSERVATION Discharge Problem: Chest pain Prescriptions: No Action ergocalciferol (vitamin D2) 50,000 unit capsule 50,000 unit PO QMONTH Qty: 3 RF: 5 hydrocodone-acetaminophen 10-325 mg tablet 1 tab PO BID PRN (Reason: chronic) Qty: 28 RF: 0 prednisone 5 mg tablet 5 mg PO QDAY Qty: 30 RF: 4 aspirin 81 MG tablet,delayed release (/EC) 81 mg PO DAILYWM RF: 0 diltiazem HCl 30 mg tablet 120 mg PO BID RF: 0 cyclobenzaprine 10 mg tablet 10 mg PO BEDTIME RF: 0 furosemide 40 mg tablet 40 mg PO DAILY PRN (Reason: FLUID RETENTION) RF: 0 lorazepam 0.5 mg tablet 0.5 mg PO DAILY PRN (Reason: Anxiety) RF: 0 ED Provider: BULMARO MALONE Condition: Fair Physician Progress Note: []
--- NOTE | 2020-11-21 23:52 | DI ---
EXAM: Portable chest HISTORY: Tachycardia COMPARISON: Single-view chest 07/22/2020 FINDINGS: The cardiomediastinal silhouette is stable. There is no consolidation or effusion. Fusio n changes are seen within the lower cervical spine. Degenerative changes noted about both shoulder g irdles. IMPRESSION: No evidence of active pulmonary disease
[2020-11-22] MEDS ORDERED: ATIVAN PO PRN (00:09)
[2020-11-22] MEDS ORDERED: LASIX TAB PO PRN (00:09)
[2020-11-22] MEDS ORDERED: PREDNISONE PO SCH (00:30)
[2020-11-22 00:54] LABS: BORDETELLA PARAPERTUSSIS (PCR) NOT DETECTED (NOT DETECT); BORDETELLA PERTUSSIS (PCR) NOT DETECTED (NOT DETECT); CHLAMYDIA PNEUMONIAE (PCR) NOT DETECTED (NOT DETECT); CORONAVIRUS 229E (PCR) NOT DETECTED (NOT DETECT); CORONAVIRUS HKU1 (PCR) NOT DETECTED (NOT DETECT); CORONAVIRUS NL63 (PCR) NOT DETECTED (NOT DETECT); CORONAVIRUS OC43 (PCR) NOT DETECTED (NOT DETECT); HUMAN METAPNEUMOVIRUS (PCR) NOT DETECTED (NOT DETECT); HUMAN RHINOVIRUS/ENTEROV (PCR) NOT DETECTED (NOT DETECT); INFLUENZA B (PCR) NOT DETECTED (NOT DETECT); MYCOPLASMA PNEUMONIAE (PCR) NOT DETECTED (NOT DETECT); PARAINFLUENZA VIRUS 1 (PCR) NOT DETECTED (NOT DETECT); PARAINFLUENZA VIRUS 2 (PCR) NOT DETECTED (NOT DETECT); PARAINFLUENZA VIRUS 3 (PCR) NOT DETECTED (NOT DETECT); PARAINFLUENZA VIRUS 4 (PCR) NOT DETECTED (NOT DETECT); RESPIRATORY SYNCYTIAL V (PCR) NOT DETECTED (NOT DETECT); SARS_COV_2 (PCR) NOT DETECTED (NOT DETECT)
[2020-11-22 01:42] LABS: ADENOVIRUS (PCR) NOT DETECTED (NOT DETECT)
[2020-11-22 03:28] VITALS: BMI 21.7
[2020-11-22 05:15] LABS: BASOPHILS # (AUTO) 0.1 K/uL (0-0.2); BASOPHILS % (AUTO) 0.6 % (0.0-3.0); EOSINOPHILS # (AUTO) 0.7 K/ul (0.0-0.7); EOSINOPHILS % (AUTO) 6.6 % (0.0-7.0); HEMATOCRIT 37.3 % (37.0-47.0); HEMOGLOBIN 11.8 g/dl (12.0-16.0); IMMATURE GRANULOCYTE % (AUTO) 0.2 % (0.0-5.0); LYMPHOCYTES # (AUTO) 2.8 K/uL (0.60-3.4); LYMPHOCYTES % (AUTO) 27.3 (10.0-50.0); MEAN CORPUSCULAR HEMOGLOBIN 28.8 pg (27.0-31.0); MEAN CORPUSCULAR HGB CONC 31.6 (31.8-35.4); MONOCYTES # (AUTO) 0.9 K/uL (0.4-2.0); MONOCYTES % (AUTO) 8.3 (0-10); NEUTROPHILS # (AUTO) 5.9 K/ul (2.0-6.9); PLATELET COUNT 345 10^3/uL (140-440); WHITE BLOOD COUNT 10.26 K/ul (4.6-10.2)
[2020-11-22 05:28] LABS: ALANINE AMINOTRANSFERASE 27.6 U/L (0-35); ALBUMIN 4.08 g/dL (3.5-5.0); ALKALINE PHOSPHATASE 127.3 U/L (53-141); ASPARTATE AMINO TRANSFERASE 49.6 U/L (14-36); BILIRUBIN,TOTAL 0.43 mg/dL (0.2-1.3); BLOOD UREA NITROGEN 36.8 mg/dL (7-17); CALCIUM 9.25 mg/dL (8.4-10.2); CARBON DIOXIDE 36.9 mmol/L (22-30.0); CHLORIDE 96.7 mmol/L (98-107); CREATININE 1.37 mg/dL (0.60-1.30); GLUCOSE 98.5 mg/dL (74-106); POTASSIUM 2.91 mmol/L (3.5-5.1); TOTAL PROTEIN 7.32 g/dL (6.3-8.2)
[2020-11-22 05:44] LABS: CREATINE KINASE 145.9 U/L (30-135)
[2020-11-22 05:57] LABS: TROPONIN I 0.04 ng/ml (0.0000-0.120)
[2020-11-22 05:59] LABS: CREATINE KINASE MB 4.53 ng/ml (0.0-2.38)
[2020-11-22] MEDS: PREDNISONE PO SCH (06:32)
[2020-11-22] MEDS ORDERED: DRISDOL PO SCH (09:00)
[2020-11-22] MEDS: PROTONIX PO SCH ×2 (09:34→16:32)
[2020-11-22] MEDS: LOVENOX SUBCUT SCH (09:34)
[2020-11-22] MEDS: ASPIRIN EC PO SCH (09:34)
[2020-11-22] MEDS: CARDIZEM CD PO SCH ×2 (09:34→21:12)
[2020-11-22] MEDS: CARAFATE PO SCH ×3 (13:27→21:11)
[2020-11-22 15:09] LABS: CREATINE KINASE 168.9 U/L (30-135)
[2020-11-22 15:22] LABS: TROPONIN I 0.029 ng/ml (0.0000-0.120)
[2020-11-22 15:56] LABS: CREATINE KINASE MB 5.32 ng/ml (0.0-2.38)
[2020-11-22] MEDS ORDERED: FLEXERIL PO SCH (21:00)
[2020-11-22 21:09] VITALS: TEMP 97.2
[2020-11-22] MEDS: NORCO 10-325 PO PRN (21:41)
[2020-11-23] MEDS: PROTONIX PO SCH (05:35)
[2020-11-23] MEDS: CARAFATE PO SCH ×2 (05:35→11:52)
[2020-11-23 05:36] VITALS: BP 149/86
[2020-11-23 06:12] LABS: BASOPHILS # (AUTO) 0.1 K/uL (0-0.2); BASOPHILS % (AUTO) 0.7 % (0.0-3.0); EOSINOPHILS # (AUTO) 0.9 K/ul (0.0-0.7); EOSINOPHILS % (AUTO) 9.2 % (0.0-7.0); HEMATOCRIT 35.5 % (37.0-47.0); HEMOGLOBIN 11.3 g/dl (12.0-16.0); IMMATURE GRANULOCYTE % (AUTO) 0.3 % (0.0-5.0); LYMPHOCYTES # (AUTO) 2.9 K/uL (0.60-3.4); LYMPHOCYTES % (AUTO) 29.4 (10.0-50.0); MEAN CORPUSCULAR HEMOGLOBIN 28.7 pg (27.0-31.0); MEAN CORPUSCULAR HGB CONC 31.8 (31.8-35.4); MEAN CORPUSCULAR VOLUME 90.1 fl (81.0-99.0); MONOCYTES # (AUTO) 0.7 K/uL (0.4-2.0); MONOCYTES % (AUTO) 7.5 (0-10); NEUTROPHILS # (AUTO) 5.1 K/ul (2.0-6.9); NEUTROPHILS % (AUTO) 52.9 % (42.2-75.2); PLATELET COUNT 331 10^3/uL (140-440); RDW COEFFICIENT OF VARIATION 14.6 % (11.6-14.8); RED BLOOD COUNT 3.94 10^6/ul (4.20-5.40); WHITE BLOOD COUNT 9.71 K/ul (4.6-10.2)
[2020-11-23 06:27] LABS: ALANINE AMINOTRANSFERASE 35.3 U/L (0-35); ALBUMIN 3.59 g/dL (3.5-5.0); ALKALINE PHOSPHATASE 124.7 U/L (53-141); ASPARTATE AMINO TRANSFERASE 55.5 U/L (14-36); BILIRUBIN,TOTAL 0.47 mg/dL (0.2-1.3); BLOOD UREA NITROGEN 31.1 mg/dL (7-17); CALCIUM 9.01 mg/dL (8.4-10.2); CARBON DIOXIDE 36.4 mmol/L (22-30.0); CHLORIDE 99.3 mmol/L (98-107); CREATININE 1.26 mg/dL (0.60-1.30); GLUCOSE 93.8 mg/dL (74-106); POTASSIUM 3.47 mmol/L (3.5-5.1); SODIUM 139.4 mmol/L (134.5-145); TOTAL PROTEIN 6.51 g/dL (6.3-8.2)
[2020-11-23] MEDS: PREDNISONE PO SCH (09:13)
[2020-11-23] MEDS: ASPIRIN EC PO SCH (09:13)
[2020-11-23] MEDS: CARDIZEM CD PO SCH (09:13)
[2020-11-23] MEDS: LOVENOX SUBCUT SCH (09:13)
[2020-11-23] MEDS: NORCO 10-325 PO PRN (11:52)
--- NOTE | 2020-11-25 09:40 | ECHO2D ---
Date of Exam: 11/23/2020 Ordering Physician: DR. KEVYN DELGADO Room #: [id number] Reason for Echo: CHEST PAIN M-Mode Normal Adult Results LV Dimensions Normal Adult Results AoV Opening excursions >1.6 >1.3 LVEDD-base- 3.5-5.8 3.3 Ao root dimensions 2.0-3.7 3.3 LVESD-base- 3.1-4.6 L. Atrium dimensions 1.9-3.8 3.9 Post. Wall thickness 0.8-1.1 1.2 IV septum (thickness) 0.7-1.2 1.2 Post. Wall excursion 0.72-1.3 NORMAL Septal motion NORMAL Systolic motion R. Ventricular cavity 1.5-2.0 3.0 LVEF 60% 74% Paradoxical septal wall motion NORMAL 2-D : 2-D M Mode Echocardiogram was performed using apical four chamber and left parasternal long and short axis views. Mitral, tricuspid and aortic valves appear to be normal. Contractility of the left ventricle seems to be normal, so is the cavity size. Left atrial cavity size and aortic root appear to be normal. There is no pericardial effusion. There is no thrombus noted in the left ventricle or left atrial cavity. M-MODE: MV: NORMAL AV: NORMAL TV: NORMAL PV: CHAMBER SIZE: NORMAL WALL MOTION: NORMAL PERICARDIUM: NORMAL INTERPRETATION: 1. BORDERLINE LEFT VENTRICULAR HYPERTROPHY 2. ENLARGED RIGHT VENTRICLE CAVITY 3. NORMAL VALVES 4. NORMAL LEFT VENTRICLE CONTRACTILITY MTDD
--- NOTE | 2020-11-25 13:48 | PN ---
DATE OF SERVICE: 11/22/2020 SUBJECTIVE: The patient was hospitalized with chest pain which was left epicardial region. Sharp shooting type of pain unrelated to exertion. The patient was seen and examined in the emergency room by the ER attending. Cardiac workup was negative. The patient was hospitalized for observation. REVIEW OF SYSTEMS: CONSTITUTIONAL: No night sweats. No fatigue, malaise, lethargy. No fever or chills. HEENT: Eyes: No visual changes. No eye pain. No eye discharge. ENT: No runny nose. No epistaxis. No sinus pain. No sore throat. No odynophagia. No congestion. RESPIRATORY: No cough, no congestion. No hemoptysis. No shortness of breath. CARDIOVASCULAR: No angina symptoms. No CHF symptoms. No atypical chest pain for CAD. No palpitations. No PND. No orthopnea. GASTROINTESTINAL: No abdominal pain. No nausea or vomiting. No diarrhea or constipation. No hematemesis. No hematochezia. GENITOURINARY: No urgency. No frequency. No dysuria. No hematuria. No obstructive symptoms. No discharge. No pain. No significant abnormal bleeding. MUSCULOSKELETAL: No musculoskeletal pain; no joint swelling. NEUROLOGICAL: No headache. No neck pain. No syncope. No seizures. No dizziness. PSYCHIATRIC: Not anxious. No depression. No suicidal thoughts. No homicidal thoughts. SKIN: No rash. No lesions. No wounds. ENDOCRINE: No unexplained weight loss. No weight gain. HEMATOLOGIC/LYMPHATIC: No anemia. No purpura. No petechiae. No prolonged or excessive bleeding. No palpable lymph nodes. PHYSICAL EXAMINATION: HEENT: Head normocephalic, atraumatic. Eyes: Extraocular muscles are intact. Pupils are equal, round and reactive to light and accommodation. Ears: No lesions. Nose appeared normal. Throat: No exudate or erythema. NECK: Supple. No JVD, no carotid bruit. No lymphadenopathy or thyromegaly. LUNGS: Clear to auscultation. Percussion note normal. Chest symmetrical. HEART: S1, S2, no S3. No murmurs. No cyanosis or clubbing. No ascites. Pulses: Dorsalis pedis and posterior tibial pulses +1 to +2 bilaterally. ABDOMEN: Soft. Nontender. Bowel sounds active. No CVA tenderness. No mass felt. EXTREMITIES: No edema. Full range of motion of all extremities, equal. NEUROLOGIC: No focal deficit. Cranial nerves II through XII are grossly intact. No headache. No double vision. SKIN: Not dry. Intact. Turgor - normal. LYMPHATIC: No palpable lymph nodes/no lymphedema. MUSCULOSKELETAL: Normal joints with no swelling. Muscle tone is normal. LABS: EKG sinus rhythm, unchanged from the previous EKG. ASSESSMENT: 1. Chest pain, epicardial like reflux type of symptoms PLAN: 1. Continue telemetry 2. Echocardiogram 3. Serial EKG 4. Cardiac markers 5. Continue the rest of the medications 6. Add Protonix and Carafate CONDITION: Stable. TIME SPENT: More than 30 minutes. Plan and coordination of the patient's care discussed in the presence of nurse. VIVEK
--- NOTE | 2020-11-25 14:00 | PN ---
DATE OF SERVICE: 11/21/20 SUBJECTIVE: The patient was brought to the emergency room with chest pain. The patient's chest pain was atypical more like a reflux type of symptom. PHYSICAL EXAMINATION: HEENT: Head normocephalic, atraumatic. Eyes: Extraocular muscles are intact. Pupils are equal, round and reactive to light and accommodation. Ears: No lesions. Nose appeared normal. Throat: No exudate or erythema. NECK: Supple. No JVD, no carotid bruit. No lymphadenopathy or thyromegaly. LUNGS: Clear to auscultation. Percussion note normal. Chest symmetrical. HEART: S1, S2, no S3. No murmurs. No cyanosis or clubbing. No ascites. Pulses: Dorsalis pedis and posterior tibial pulses +1 to +2 bilaterally. ABDOMEN: Soft. Nontender. Bowel sounds active. No CVA tenderness. No mass felt. EXTREMITIES: No edema. Full range of motion of all extremities, equal. NEUROLOGIC: No focal deficit. Cranial nerves II through XII are grossly intact. No headache. No double vision. SKIN: Not dry. Intact. Turgor - normal. LYMPHATIC: No palpable lymph nodes/no lymphedema. MUSCULOSKELETAL: Normal joints with no swelling. Muscle tone is normal. EKG sinus rhythm, no acute changes. The patient does not have any exertional chest discomfort. This usually happens at rest, chewing helps. ASSESSMENT: 1. Chest pain, etiology unknown, rule out CO or ischemia. PLAN: 1. Observe the patient with routine telemetry orders. 2. Continue the rest of the medications. 3. She has several coronary artery disease risk factors. 4. Will also do Echo to evaluate for LV function and possible stress test maybe as an outpatient. TIME SPENT: More than 30 minutes. Plan and coordination of the patient's care discussed in the presence of nurse. VIVEK
--- NOTE | 2020-11-25 14:44 | PN ---
DATE OF SERVICE: 11/24/2020 SUBJECTIVE: 84 year old white female hospitalized with chest pain. The patient's chest pain has subsided. The patient's pain was more she described as the type of pain from neck down to the epigastric area more like the chest is going to burst. On further questioning the patient more like reflux disease type of symptoms. REVIEW OF SYSTEMS: CONSTITUTIONAL: No night sweats. No fatigue, malaise, lethargy. No fever or chills. HEENT: Eyes: No visual changes. No eye pain. No eye discharge. ENT: No runny nose. No epistaxis. No sinus pain. No sore throat. No odynophagia. No congestion. RESPIRATORY: No cough, no congestion. No hemoptysis. No shortness of breath. CARDIOVASCULAR: No angina symptoms. No CHF symptoms. No atypical chest pain for CAD. No palpitations. No PND. No orthopnea. GASTROINTESTINAL: No abdominal pain. No nausea or vomiting. No diarrhea or constipation. No hematemesis. No hematochezia. GENITOURINARY: No urgency. No frequency. No dysuria. No hematuria. No obstructive symptoms. No discharge. No pain. No significant abnormal bleeding. MUSCULOSKELETAL: No musculoskeletal pain; no joint swelling. NEUROLOGICAL: No headache. No neck pain. No syncope. No seizures. No dizziness. PSYCHIATRIC: Not anxious. No depression. No suicidal thoughts. No homicidal thoughts. SKIN: No rash. No lesions. No wounds. ENDOCRINE: No unexplained weight loss. No weight gain. HEMATOLOGIC/LYMPHATIC: No anemia. No purpura. No petechiae. No prolonged or excessive bleeding. No palpable lymph nodes. PHYSICAL EXAMINATION: VITAL SIGNS: Temperature 97.2, pulse 90, respiratory rate 20, blood pressure 150/86 and pulse ox 100%. HEENT: Head normocephalic, atraumatic. Eyes: Extraocular muscles are intact. Pupils are equal, round and reactive to light and accommodation. Ears: No lesions. Nose appeared normal. Throat: No exudate or erythema. NECK: Supple. No JVD, no carotid bruit. No lymphadenopathy or thyromegaly. LUNGS: Clear to auscultation. Percussion note normal. Chest symmetrical. HEART: S1, S2, no S3. No murmurs. No cyanosis or clubbing. No ascites. Pulses: Dorsalis pedis and posterior tibial pulses +1 to +2 bilaterally. ABDOMEN: Soft. Nontender. Bowel sounds active. No CVA tenderness. No mass felt. EXTREMITIES: No edema. Full range of motion of all extremities, equal. NEUROLOGIC: No focal deficit. Cranial nerves II through XII are grossly intact. No headache. No double vision. SKIN: Not dry. Intact. Turgor - normal. LYMPHATIC: No palpable lymph nodes/no lymphedema. MUSCULOSKELETAL: Normal joints with no swelling. Muscle tone is normal. LABS: hgb 11.3, hct 35, WBC 9,700 normal differential, creatinine 1.2, BUN 31, potassium 3.4. ASSESSMENT: 1. Chest pain seems to be noncardiac more like a reflux type of symptoms PLAN: 1. Discharge the patient home with K-tab 10meq daily 2. Protonix to be taken 40mg daily for 30 days 3. No nonsteroidal anti-inflammatory, The patient admitted of taking nonsteroidal anti-inflammatory every once in awhile. 4. Stress echo to be done as an outpatient 5. Carotid scan to be done for dizziness as an outpatient with instructions to come back in 7-10 days. 6. Continue the rest of the medication as before. TIME SPENT: More than 30 minutes. Plan and coordination of the patient's care discussed in the presence of nurse. VIVEK
--- NOTE | 2020-11-26 11:32 | DS ---
DATE OF SERVICE: 11/25/20 FINAL DIAGNOSIS: 1. CHEST PAIN SEEMS TO BE NONCARDIAC LIKELY FROM REFLUX ESOPHAGEAL SPASM 2. GENERALIZED OSTEOARTHRITIS 3. HYPERTENSION 4. GENERALIZED ANXIETY DISORDER 5. TEMPORAL ARTERITIS DISCHARGE INSTRUCTIONS: 1. Discharge the patient. She is to followup in 7 to 10 days. 2. The patient was scheduled for stress echo as an outpatient. 3. Carotid scan to be done as an outpatient. The patient is already scheduled for that. 4. Advised not to take any nonsteroidal antiinflammatory. 5. Advised to go to the nearest ER if chest pain reoccurs. MEDICATIONS AT DISCHARGE: K-tab 10 mEq p.o. daily Protonix 40 p.o. q.a.m. Continue Aspirin, Vitamin D3, Hydrocodone, Prednisone, Diltizem, Flexeril, Lasix p.r.n. and Lorazepam p.r.n. as before DISEASE SPECIFIC EDUCATION: Chest pain Panic attack Stress echocardiogram HOSPITAL COURSE: 84-year-old white female hospitalized with chest pain, which was fairly atypical. It is described as starting from neck to the epigastric area in a [place] type of fashion, whole chest wall is going to come out more like a gas pain. She was started on Protonix and Carafate. She was monitored and did not have any acute [place] or ischemia. Cardiac markers were negative. EKG unchanged from the one that was done before with no acute changes. She was up and about. Declined to have a stress echo done while she was in the hospital. She was ready to go home after 24 hours. In any case, at 48 hours the patient's condition and cardiovascular status was stable. She was explained about antireflux measure, advised not to take nonsteroidal antiinflammatory. The patient is to undergo stress echo and carotid scan as an outpatient. CONDITION AT THE TIME OF DISCHARGE: Stable. Labs: Hemoglobin 11.3, hematocrit 35, WBC 9,700, normal differential. Creatinine 1.2, BUN 31, potassium 3.47. TIME SPENT: More than 60 minutes. [facility]
--- NOTE | 2020-11-26 11:35 | PN ---
BILLING 11/22/20 LEVEL 5 11/23/20 D IN DISCHARGE MTDD
== END 2020-11-23 13:35 | disposition home or self-care (01) ==
LOC: MEDSURG A 22:19 → ED 22:19 → MEDSURG A 11-22 02:05
PROVIDERS: ADMIT Internal Medicine; ATTEND Internal Medicine
DX: R00.2 Palpitations; I10 Essential (primary) hypertension; R07.9 Chest pain, unspecified; F41.9 Anxiety disorder, unspecified; Z20.822 Contact with and (suspected) exposure to COVID-19; M19.90 Unspecified osteoarthritis, unspecified site; I77.6 Arteritis, unspecified

== ENCOUNTER 2022-01-01 20:49 | Inpatient (IN) ==
[2022-01-01] MEDS ORDERED: CARDIZEM INJ IVP STA (20:59)
[2022-01-01] MEDS ORDERED: SODIUM CHLORIDE 500 ML IV STA (21:04)
--- NOTE | 2022-01-01 21:11 | ED.PDOC ---
General ED Provider: Dr. PARVIZ MAYFIELD Chief Complaint: Non-specific Complaint Stated Complaint: Pt present with multiple complaints. Pt recently has finished a course of prednisone. Tonight she was at home and bend over and felt like something hit her head. Sine then, "everything" on the left side is off. She had trouble describing what she meant by that but the best I could get was that she had palpitations and chest discomfort on the left side. She states her hand bilaterally feel like they are "pulsing". She denies any numbness, tingling or weakness in her extremities but does describe pain whenever she touches her legs. She has had some mild SOB but no F/C/N/V/AP. Nothing else makes her sxs better or worse and they are mild in nature. Time Seen by Provider: 01/01/22 20:57 Mode of Arrival: Ambulance Information Source: Patient and EMT Primary Care Provider: KEVYN DELGADO Nursing and Triage Documentation Reviewed and Agree: Yes Does patient meet sepsis criteria?: No If yes, has appropriate treatment been initiated?: No System Inflammatory Response Syndrome: Not Applicable Sepsis Protocol: For patient's 13 years and over: Temp is 96.8 and below OR 101 and greater Pulse >90 BPM Resp >20/minute Acutely Altered Mental Status Are patient's symptoms suggestive of a new infection, such as: -Pneumonia -Skin, Soft Tissue -Endocarditis -UTI -Bone, Joint Infection -Implantable Device -Acute Abdominal Infection -Wound Infection -Meningitis -Blood Stream Catheter Infection -Unknown Review of Systems Review Of Systems Constitutional: Reports Malaise Eyes: Reports No symptoms Ears, Nose, Mouth, Throat: Reports No symptoms Respiratory: Reports Short of air (mild) Cardiac: Reports Chest pain (Tightness) and Palpitations GI: Reports No symptoms : Reports No symptoms Musculoskeletal: Reports No symptoms Skin: Reports No symptoms Neurological: Reports Headache Endocrine: Reports No symptoms Hematologic/Lymphatic: Reports No symptoms All Other Systems: Reviewed and Negative [facility] Medical History (Updated 01/01/22 @ 22:04 by PARVIZ MAYFIELD) Bone fracture Cardiac arrhythmia Headache, migraine Hypertension Family History Other No known health problems Social History Smoking and tobacco status: Former smoker Alcohol intake: never Counseling given: No Substance use type: does not use Counseling given: No Rosie/roman catholic: MU-ISM Special rosie needs: No Agree to transfusion: No Household members: none Housing: house Marital status: W / Lives independently: Yes service: No assisted: No Current occupational status: retired Current occupational exposures/hazards: No History of recent travel: No Sexually active: No Do you think of yourself as: straight/heterosexual Current gender identity: female Female Reproductive History Menstrual Age of Menarche: 17 Hx Hysterectomy: No Hx Tubal Ligation: No Physical Exam Physical Exam Appearance: Reports Well-appearing, No pain distress and Well-nourished Ill-appearing: None Pain Distress: None Eyes: Reports MICHAEL, EOMI and Conjunctiva clear ENT: Reports Ears normal, Nose normal and Oropharynx normal Neck: Supple Respiratory: Reports Airway patent, Breath sounds clear, Breath sounds equal and Respirations nonlabored Cardiovascular: Reports No rub, No murmur, Irregular rhythm and Tachycardia GI/: Reports Soft, Nontender, No masses, Bowel sounds normal and No Organomegaly Musculoskeletal: Reports Normal strength, ROM intact, No edema and No calf tenderness Skin: Reports Warm, Dry and Normal color Neurological: Reports Sensation intact (no focal numbness), Motor intact (No focal weakness, pronator drift or facial droop.), Reflexes intact, Cranial nerves intact, Alert and Oriented Psychiatric: Reports Affect appropriate and Mood appropriate Interpretation EKG Interpretation Time of EKG #1: 21:13 Rate: Tachy Rhythm: Other (Afib w/ RVR) [place]queeney: NL ST Segment: Normal Interpretation: This was after 15mg of cardizem. Initial HR was 160. Critical Care Note Critical Care Note Total Critical Care Time (mins): 0 Course Course Hematology/Chemistry: 01/01/22 21:05 01/01/22 21:05 Orders, Labs, Meds: Lab Review 01/01/22 01/01/22 01/01/22 21:05 21:05 21:05 WBC 9.15 RBC 4.86 Hgb 13.4 Hct 42.0 MCV 86.4 MCH 27.6 MCHC 31.9 RDW Coeff of Chucky 14.4 Plt Count 411 Immature Gran % (Auto) 0.5 Neut % (Auto) 72.1 Lymph % (Auto) 14.9 [place] % (Auto) 10.8 H Eos % (Auto) 1.2 Baso % (Auto) 0.5 Neut # (Auto) 6.6 Lymph # (Auto) 1.4 [place] # (Auto) 1.0 Eos # (Auto) 0.1 Baso # (Auto) 0.1 Immature Gran # (Auto) 0.1 Sodium 131.7 L Potassium 4.06 Chloride 89.8 L Carbon Dioxide 34.0 H Anion Gap 11.96 BUN 46.5 H Creatinine 1.12 Estimated GFR (MDRD) 46.00 BUN/Creatinine Ratio 41.51 Glucose 126.5 H Calcium 9.10 Magnesium 2.42 H Total Bilirubin 0.56 AST 44.6 H ALT 21.4 Alkaline Phosphatase 128.0 Total Creatine Kinase 43.3 Troponin I 0.072 NT-Pro-B Natriuret Pep 2210.000 H Total Protein 7.11 Albumin 3.57 Globulin 3.54 Albumin/Globulin Ratio 1.00 Orders Category Date Time Status ABG DRAW REQUEST Stat CARDIO 01/01/22 21:56 Ordered EKG-(ED ONLY) Stat CARDIO 01/01/22 20:58 Completed ABG COOX Stat LAB 01/01/22 21:56 Ordered CBC W/ AUTO DIFF Stat LAB 01/01/22 21:05 Completed COMPREHENSIVE METABOLIC PANEL Stat LAB 01/01/22 21:05 Completed COVID [SARS COV-2 RNA RAPID ANIYAH] Stat LAB 01/01/22 21:58 Ordered CREATINE KINASE Stat LAB 01/01/22 21:05 Completed MAGNESIUM Stat LAB 01/01/22 21:05 Completed PRO-BNP [NT-PROBNP] Stat LAB 01/01/22 21:05 Completed TROPONIN I Stat LAB 01/01/22 21:05 Completed Diltiazem HCl [Cardizem Inj] MEDS 01/01/22 20:59 Discontinued 15 mg IVP ONCE STA Diltiazem HCl [Cardizem] 125 mg MEDS 01/01/22 21:00 Active 0.9 % Sodium Chloride [Sodium Chloride 100Ml] 100 ml IV TITRATION Enoxaparin Sodium [Lovenox] MEDS 01/01/22 21:56 Stat 50 mg SUBCUT ONCE STA Sodium Chloride 0.9% [Sodium Chloride] 500 ml MEDS 01/01/22 21:04 Active IV BOLUS CHEST, 1V AP ONLY Stat RADS 01/01/22 20:[address] HEAD W/O CONTRAST Stat RADS 01/01/22 20:58 Taken Medications Generic Name Dose Route Start Last Admin Trade Name Freq PRN Reason Stop Dose Admin Diltiazem HCl 125 mg/ Sodium 125 mls @ 5 mls/hr 01/01/22 21:00 Chloride IV TITRATION ABEL Protocol 5 MG/HR Sodium Chloride 500 mls @ 500 mls/hr 01/01/22 21:04 01/01/22 21:05 Sodium Chloride IV 01/01/22 22:03 500 mls/hr BOLUS STA Administration Discontinued Medications Generic Name Dose Route Start Last Admin Trade Name Freq PRN Reason Stop Dose Admin Diltiazem HCl 15 mg 01/01/22 20:59 01/01/22 21:09 Diltiazem Hcl Inj 25 Mg/5 Ml Vial IVP 01/01/22 21:00 15 mg ONCE STA Administration Enoxaparin Sodium 50 mg 01/01/22 21:56 Enoxaparin Sodium 60 Mg/0.6 Ml Syr SUBCUT 01/01/22 21:57 ONCE STA Vital Signs: Temp Pulse Resp BP Pulse Ox 01/01/22 20:55 99.7 F H 167 H 14 90/49 L 98 Discharge Plan Discharge Patient Disposition: ADMITTED INPATIENT Discharge Problem: Atrial fibrillation with rapid ventricular response, Heart palpitations Did you review [place] MEMBERSHIP ASSISTANT?: Yes ED Provider: PARVIZ MAYFIELD Physician Progress Note: I have reviewed pt results. CBC was unremarkable. Chems show a Na of 132. Her trop was negative with a BNP was 2210. CXR showed scarring but no definitive overload. CT head was negative for any acute findings. I spoke with Dr. Delgado who will consult but wants the patient admitted to the hospitalist service. He would like lovenox, an abg and cardizem gtt. Pt did have a HR of 110 prior to starting the cardizem gtt but it was slowly going up.
[2022-01-01 21:14] LABS: BASOPHILS # (AUTO) 0.1 K/uL (0-0.2); BASOPHILS % (AUTO) 0.5 % (0.0-3.0); EOSINOPHILS # (AUTO) 0.1 K/ul (0.0-0.7); EOSINOPHILS % (AUTO) 1.2 % (0.0-7.0); HEMOGLOBIN 13.4 g/dl (12.0-16.0); IMMATURE GRANULOCYTE # (AUTO) 0.1 (0.0-1.0); IMMATURE GRANULOCYTE % (AUTO) 0.5 % (0.0-5.0); LYMPHOCYTES # (AUTO) 1.4 K/uL (0.60-3.4); LYMPHOCYTES % (AUTO) 14.9 (10.0-50.0); MEAN CORPUSCULAR HEMOGLOBIN 27.6 pg (27.0-31.0); MEAN CORPUSCULAR HGB CONC 31.9 (31.8-35.4); MEAN CORPUSCULAR VOLUME 86.4 fl (81.0-99.0); MONOCYTES % (AUTO) 10.8 (0-10); NEUTROPHILS # (AUTO) 6.6 K/ul (2.0-6.9); NEUTROPHILS % (AUTO) 72.1 % (42.2-75.2); PLATELET COUNT 411 10^3/uL (140-440); RDW COEFFICIENT OF VARIATION 14.4 % (11.6-14.8); RED BLOOD COUNT 4.86 10^6/ul (4.20-5.40); WHITE BLOOD COUNT 9.15 K/ul (4.6-10.2)
[2022-01-01 21:29] LABS: ALANINE AMINOTRANSFERASE 21.4 U/L (0-35); ALBUMIN 3.57 g/dL (3.5-5.0); ASPARTATE AMINO TRANSFERASE 44.6 U/L (14-36); BILIRUBIN,TOTAL 0.56 mg/dL (0.2-1.3); BLOOD UREA NITROGEN 46.5 mg/dL (7-17); CALCIUM 9.1 mg/dL (8.4-10.2); CHLORIDE 89.8 mmol/L (98-107); CREATINE KINASE 43.3 U/L (30-135); CREATININE 1.12 mg/dL (0.60-1.30); GLUCOSE 126.5 mg/dL (74-106); MAGNESIUM 2.42 mg/dL (1.6-2.3); POTASSIUM 4.06 mmol/L (3.5-5.1); SODIUM 131.7 mmol/L (134.5-145); TOTAL PROTEIN 7.11 g/dL (6.3-8.2)
[2022-01-01 21:41] LABS: TROPONIN I 0.072 ng/ml (0.0000-0.120)
[2022-01-01] MEDS ORDERED: LOVENOX SUBCUT STA (21:56)
--- NOTE | 2022-01-01 22:08 | DI ---
EXAM: CHEST RADIOGRAPH (1 VIEW) TECHNIQUE: Frontal Chest Radiograph. HISTORY: Palpitations COMPARISON: 11/21/2020 FINDINGS: Lines, Tubes, Devices: None Lungs and Pleura: Scattered nodular densities are new since the previous study. No pleural effusion or pneumothorax. Cardiomediastinum: Stable cardiomediastinal silhouette. Moderate to severe aortic calcifications. Bones/Soft Tissues: No acute osseous abnormality. No soft tissue abnormality. Upper Abdomen: Within normal limits. IMPRESSION: Scattered reticular nodular densities are new since the previous study. Correlate for pneumonitis. Clinical and imaging follow-up are recommended to ensure resolution and exclude other etiology.
--- NOTE | 2022-01-01 22:13 | PCM ---
Chief Complaint Chief Complaint: Palpitations. History of Present Illness History of Present Illness: Pt presented for palpitation and was in Afib w RVR. Was slowed with cardizem but HR increased again requiring a drip. Dr. Pitt was consulted and will see the patient. She is getting lovenox for anticoagulation. See ED note for further details. Review of Systems Constitutional: Reports No symptoms Eyes: Reports No symptoms Ears: Reports No symptoms Nose: Reports No symptoms Throat: Reports No symptoms Mouth: Reports No symptoms Respiratory: Reports No symptoms Cardiovascular: Reports Chest pain (tightness) and Palpitations Gastrointestinal: Reports No symptoms Genitourinary: Reports No symptoms Neurological: Reports No symptoms Musculoskeletal: Reports No symptoms Skin: Reports No symptoms Immunology: Reports No symptoms Hematology: Reports No symptoms Endocrine: Reports No symptoms Psychiatric: Reports No symptoms Allergies Allergies Allergy/AdvReac Type Severity Reaction Status Date / Time animal dander Allergy Severe Rash, Unverified 09/24/21 16:05 thoat swells morphine Allergy Unknown Unverified 09/24/21 16:05 mccord AdvReac Unknown Verified 09/24/21 16:05 losartan AdvReac Unknown Unverified 09/24/21 16:05 alcohol hand wagon winder Allergy Severe Throat Uncoded 09/24/21 16:05 swelled, went to ER hair dye AdvReac Unknown Uncoded 09/24/21 16:05 seafood AdvReac Unknown Uncoded 09/24/21 16:05 [facility] Medical History (Updated 01/01/22 @ 22:12 by PARVIZ MAYFIELD) Bone fracture Cardiac arrhythmia Headache, migraine Hypertension Family History Other No known health problems Social History Smoking and tobacco status: Former smoker Alcohol intake: never Counseling given: No Substance use type: does not use Counseling given: No Rosie/anabaptist: SCIENTOLOGIST Special rosie needs: No Agree to transfusion: No Household members: none Housing: house Marital status: W / Lives independently: Yes service: No USP: No Current occupational status: retired Current occupational exposures/hazards: No History of recent travel: No Sexually active: No Do you think of yourself as: straight/heterosexual Current gender identity: female Medications Medications: Medications Generic Name Dose Route Start Last Admin Trade Name Freq PRN Reason Stop Dose Admin Enoxaparin Sodium 60 mg 01/02/22 09:00 Enoxaparin Sodium 60 Mg/0.6 Ml Syr SUBCUT BID [facility] Diltiazem HCl 125 mg/ Sodium 125 mls @ 5 mls/hr 01/01/22 21:00 Chloride IV TITRATION [facility] Protocol 5 MG/HR Diltiazem HCl 125 mg/ Sodium 125 mls @ 5 mls/hr 01/01/22 22:30 Chloride IV TITRATION [facility] Protocol 5 MG/HR Body Composition Height: 5 ft 3 in Weight: 48.6 kg Body Mass Index (BMI): 18.9 Vital Signs Temperature: 99.7 F Pulse Rate: 167 Respiratory Rate: 14 Blood Pressure: 90/49 O2 Sat by Pulse Oximetry: 98 Physical Examination Appearance: Reports Well-appearing, No pain distress and Well-nourished Ill-appearing: None Pain Distress: None Eyes: Reports MICHAEL, EOMI and Conjunctiva clear ENT: Reports Oropharynx normal Respiratory: Reports Airway patent, Breath sounds clear and Breath sounds equal Cardiovascular: Reports No rub, No murmur, Irregular rhythm and Tachycardia GI/: Reports Soft, Nontender, No masses, Bowel sounds normal and No Organomegaly Musculoskeletal: Reports Normal strength, ROM intact, No edema and No calf tenderness Skin: Reports Warm, Dry and Normal color Neurological: Reports Sensation intact, Motor intact, Reflexes intact, Cranial nerves intact, Alert and Oriented Psychiatric: Reports Affect appropriate and Mood appropriate Lab/Tests/Diagnostic Imaging Lab/Tests/Diagnostic Imaging: Lab Review 01/01/22 01/01/22 01/01/22 21:05 21:05 21:05 WBC 9.15 RBC 4.86 Hgb 13.4 Hct 42.0 MCV 86.4 MCH 27.6 MCHC 31.9 RDW Coeff of Chucky 14.4 Plt Count 411 Immature Gran % (Auto) 0.5 Neut % (Auto) 72.1 Lymph % (Auto) 14.9 [place] % (Auto) 10.8 H Eos % (Auto) 1.2 Baso % (Auto) 0.5 Neut # (Auto) 6.6 Lymph # (Auto) 1.4 [place] # (Auto) 1.0 Eos # (Auto) 0.1 Baso # (Auto) 0.1 Immature Gran # (Auto) 0.1 Sodium 131.7 L Potassium 4.06 Chloride 89.8 L Carbon Dioxide 34.0 H Anion Gap 11.96 BUN 46.5 H Creatinine 1.12 Estimated GFR (MDRD) 46.00 BUN/Creatinine Ratio 41.51 Glucose 126.5 H Calcium 9.10 Magnesium 2.42 H Total Bilirubin 0.56 AST 44.6 H ALT 21.4 Alkaline Phosphatase 128.0 Total Creatine Kinase 43.3 Troponin I 0.072 NT-Pro-B Natriuret Pep 2210.000 H Total Protein 7.11 Albumin 3.57 Globulin 3.54 Albumin/Globulin Ratio 1.00 Orders Category Date Time Status ADMIT PATIENT INPATIENT .TO [facility] (MONITORED BED) ADMISSION 01/01/22 22:04 Active ABG DRAW REQUEST Stat CARDIO 01/01/22 21:56 Ordered EKG-(ED ONLY) Stat CARDIO 01/01/22 20:58 Completed NOTIFY PHYSICIAN OF CONSULT [facility] 01/01/22 22:05 Active TELEMETRY MONITORING TELE CARE 01/01/22 22:04 Active CONSULT DOCTOR [PHYSICIAN CONSULTATION] [CONS] Routine CONSULTS 01/01/22 22:04 Ordered ABG COOX Stat LAB 01/01/22 22:00 Received CBC W/ AUTO DIFF DAILY@0600 LAB 01/02/22 06:00 Ordered CBC W/ AUTO DIFF DAILY@0600 LAB 01/03/22 06:00 Ordered CBC W/ AUTO DIFF Stat LAB 01/01/22 21:05 Completed CMP [COMPREHENSIVE METABOLIC PANEL] DAILY@0600 LAB 01/02/22 06:00 Ordered CMP [COMPREHENSIVE METABOLIC PANEL] DAILY@0600 LAB 01/03/22 06:00 Ordered COMPREHENSIVE METABOLIC PANEL Stat LAB 01/01/22 21:05 Completed COVID [SARS COV-2 RNA RAPID ANIYAH] Stat LAB 01/01/22 22:00 Received CREATINE KINASE Stat LAB 01/01/22 21:05 Completed MAGNESIUM Stat LAB 01/01/22 21:05 Completed PRO-BNP [NT-PROBNP] Stat LAB 01/01/22 21:05 Completed TROPONIN I DAILY@0600 LAB 01/02/22 06:00 Ordered TROPONIN I DAILY@0600 LAB 01/03/22 06:00 Ordered TROPONIN I Stat LAB 01/01/22 21:05 Completed Diltiazem HCl [Cardizem Inj] MEDS 01/01/22 20:59 Discontinued 15 mg IVP ONCE STA Diltiazem HCl [Cardizem] 125 mg MEDS 01/01/22 21:00 Active 0.9 % Sodium Chloride [Sodium Chloride 100Ml] 100 ml IV TITRATION Diltiazem HCl [Cardizem] 125 mg MEDS 01/01/22 22:30 Ordered 0.9 % Sodium Chloride [Sodium Chloride 100Ml] 100 ml IV TITRATION Enoxaparin Sodium [Lovenox] MEDS 01/01/22 21:56 Discontinued 50 mg SUBCUT ONCE STA Enoxaparin Sodium [Lovenox] MEDS 01/02/22 09:00 Ordered 60 mg SUBCUT BID Sodium Chloride 0.9% [Sodium Chloride] 500 ml MEDS 01/01/22 21:04 Discontinued IV BOLUS CHEST, 1V AP ONLY Stat RADS 01/01/22 20:[address] HEAD W/O CONTRAST Stat RADS 01/01/22 20:58 Taken Medications Generic Name Dose Route Start Last Admin Trade Name Freq PRN Reason Stop Dose Admin Enoxaparin Sodium 60 mg 01/02/22 09:00 Enoxaparin Sodium 60 Mg/0.6 Ml Syr SUBCUT BID ABEL Diltiazem HCl 125 mg/ Sodium 125 mls @ 5 mls/hr 01/01/22 21:00 Chloride IV TITRATION ABEL Protocol 5 MG/HR Diltiazem HCl 125 mg/ Sodium 125 mls @ 5 mls/hr 01/01/22 22:30 Chloride IV TITRATION ABEL Protocol 5 MG/HR Discontinued Medications Generic Name Dose Route Start Last Admin Trade Name Freq PRN Reason Stop Dose Admin Diltiazem HCl 15 mg 01/01/22 20:59 01/01/22 21:09 Diltiazem Hcl Inj 25 Mg/5 Ml Vial IVP 01/01/22 21:00 15 mg ONCE STA Administration Enoxaparin Sodium 50 mg 01/01/22 21:56 Enoxaparin Sodium 60 Mg/0.6 Ml Syr SUBCUT 01/01/22 21:57 ONCE STA Sodium Chloride 500 mls @ 500 mls/hr 01/01/22 21:04 01/01/22 21:05 Sodium Chloride IV 01/01/22 22:03 500 mls/hr BOLUS STA Administration Assessment (1) Atrial fibrillation with RVR: Status: Acute Code(s): I48.91 - Unspecified atrial fibrillation SNOMED Code(s): 769688799613545 Plan Plan: 1. Afib w RVR: Admit to hospital. Continue cardizem gtt for rate control. Pt on Lovenox for anticoagulation. Consult Dr. Pitt for further recommendations.
--- NOTE | 2022-01-01 22:15 | CT ---
EXAM: CT of the head without contrast History: Cerebrovascular accident. Comparison: Head CT 09/18/2021 Technique: Multiplanar CT images through the head were obtained without the administration of IV con trast Findings: The visualized paranasal sinuses and mastoid air cells are clear in general. No acute rolly varial abnormalities. Intracranially the ventricular and cisternal spaces are normal in size, shape and configuration for a patient of this age. No dominant mass or midline shift. No hydrocephalous. No acute intracranial hemorrhage or abnormal extraaxial fluid collections. Scattered periventricular and subcortical white matter hypodensities. Impression: No acute intracranial process. Stable chronic small vessel ischemic disease All CT scans are performed using dose optimization techniques as appropriate to the performed exam an d include at least one of the following: Automated exposure control, adjustment of the mA and/or kV according t o size, and the use of iterative reconstruction technique.
[2022-01-01 22:19] LABS: ABG O2 HGB 94.3 % (95-100); BEecf 14.6 (-2.0-3.0); HCO3 36.6 (21-28); MetHb 1.5 (0-1.5); TCO2 37.8 (19-24); sO2 96.1 % (94-98); tHb 13.7 g/dl (11.7-17.4)
[2022-01-01 22:28] LABS: ABG PH 7.57 (7.35-7.45)
[2022-01-01] MEDS ORDERED: CARDIZEM 125 MG in SODIUM CHLORIDE 100ML 100 ML IV SCH (22:30)
[2022-01-01] MEDS: CARDIZEM 125 MG in SODIUM CHLORIDE 100ML 100 ML IV SCH (22:54)
[2022-01-02 00:08] VITALS: BMI 19.8
[2022-01-02] MEDS: SODIUM CHLORIDE 1,000 ML IV SCH (04:45)
[2022-01-02 05:27] LABS: BASOPHILS % (AUTO) 0.2 % (0.0-3.0); EOSINOPHILS # (AUTO) 0.2 K/ul (0.0-0.7); EOSINOPHILS % (AUTO) 2.6 % (0.0-7.0); IMMATURE GRANULOCYTE # (AUTO) 0.1 (0.0-1.0); IMMATURE GRANULOCYTE % (AUTO) 0.5 % (0.0-5.0); LYMPHOCYTES # (AUTO) 1.4 K/uL (0.60-3.4); LYMPHOCYTES % (AUTO) 15.4 (10.0-50.0); MEAN CORPUSCULAR HEMOGLOBIN 28.2 pg (27.0-31.0); MEAN CORPUSCULAR HGB CONC 32.5 (31.8-35.4); MEAN CORPUSCULAR VOLUME 86.8 fl (81.0-99.0); MONOCYTES # (AUTO) 1.1 K/uL (0.4-2.0); MONOCYTES % (AUTO) 11.5 (0-10); NEUTROPHILS # (AUTO) 6.4 K/ul (2.0-6.9); NEUTROPHILS % (AUTO) 69.8 % (42.2-75.2); PLATELET COUNT 385 10^3/uL (140-440); RDW COEFFICIENT OF VARIATION 14.5 % (11.6-14.8); RED BLOOD COUNT 4.61 10^6/ul (4.20-5.40); WHITE BLOOD COUNT 9.12 K/ul (4.6-10.2)
[2022-01-02 05:37] LABS: ALBUMIN 3.14 g/dL (3.5-5.0); ALKALINE PHOSPHATASE 113.4 U/L (53-141); ASPARTATE AMINO TRANSFERASE 38.7 U/L (14-36); BILIRUBIN,TOTAL 0.54 mg/dL (0.2-1.3); BLOOD UREA NITROGEN 38.7 mg/dL (7-17); CALCIUM 8.69 mg/dL (8.4-10.2); CARBON DIOXIDE 34.4 mmol/L (22-30.0); CREATININE 1.09 mg/dL (0.60-1.30); POTASSIUM 3.71 mmol/L (3.5-5.1); TOTAL PROTEIN 6.48 g/dL (6.3-8.2)
[2022-01-02 05:48] LABS: TROPONIN I 0.099 ng/ml (0.0000-0.120)
[2022-01-02 06:03] LABS: CHOLESTEROL 153.1 mg/dL (0-200); HDL CHOLESTEROL 60.2 mg/dL (35-80); TRIGLYCERIDES 100.3 mg/dL (0-150)
[2022-01-02 06:33] LABS: THYROID STIMULATING HORMONE 0.979 uIU/L (0.465-4.68)
[2022-01-02] MEDS: ASPIRIN EC PO SCH (08:57)
[2022-01-02] MEDS: LOVENOX SUBCUT SCH ×2 (08:58→20:42)
[2022-01-02] MEDS ORDERED: LOVENOX SUBCUT SCH (09:00)
[2022-01-02] MEDS ORDERED: LASIX TAB PO SCH (09:00)
[2022-01-02] MEDS ORDERED: DRISDOL PO SCH (09:00)
[2022-01-02] MEDS ORDERED: CARDIZEM PO SCH (09:00)
[2022-01-02] MEDS: PREDNISONE PO SCH (09:03)
--- NOTE | 2022-01-02 11:46 | PCM.PROG ---
Date Seen by Provider: 01/02/22 Time Seen by Provider: 11:44 Subjective: pt stable, no chest pain Objective: Vitals: T=98.2 F, P=106, R=21, WZ=717/48, SPO2=97 HEENT: []conjunctiva clear Neck: []supple Lungs: [] no respiratory distress CVS: []tachycardia Abdomen: [] Extremities: [] Neurological: []alert and oriented Skin: []pink Lab/Tests/Diagnostic Imaging: [] K+ 3.7, wbc 9.1 (1) Atrial fibrillation with RVR: Status: Acute Code(s): I48.91 - Unspecified atrial fibrillation SNOMED Code(s): 420428067050198 Plan: continue iv cardizem for rate control await Dr Pitt consult care to Dr Robertson at 19:00
[2022-01-02] MEDS ORDERED: DECADRON IM ONE (12:57)
[2022-01-02] MEDS ORDERED: DECADRON IVP ONE (13:35)
[2022-01-02] MEDS: CARDIZEM PO SCH ×2 (14:10→20:41)
[2022-01-02] MEDS: FLEXERIL PO SCH (21:01)
[2022-01-03] MEDS: CARDIZEM PO SCH ×3 (05:12→21:14)
[2022-01-03] MEDS: LASIX TAB PO SCH (05:31)
[2022-01-03 05:38] LABS: BASOPHILS % (AUTO) 0.2 % (0.0-3.0); HEMATOCRIT 37.8 % (37.0-47.0); HEMOGLOBIN 12.4 g/dl (12.0-16.0); IMMATURE GRANULOCYTE % (AUTO) 0.5 % (0.0-5.0); LYMPHOCYTES # (AUTO) 0.7 K/uL (0.60-3.4); LYMPHOCYTES % (AUTO) 12.9 (10.0-50.0); MEAN CORPUSCULAR HEMOGLOBIN 28.4 pg (27.0-31.0); MEAN CORPUSCULAR HGB CONC 32.8 (31.8-35.4); MEAN CORPUSCULAR VOLUME 86.5 fl (81.0-99.0); MONOCYTES # (AUTO) 0.6 K/uL (0.4-2.0); MONOCYTES % (AUTO) 10.1 (0-10); NEUTROPHILS # (AUTO) 4.3 K/ul (2.0-6.9); NEUTROPHILS % (AUTO) 76.3 % (42.2-75.2); PLATELET COUNT 401 10^3/uL (140-440); RDW COEFFICIENT OF VARIATION 14.5 % (11.6-14.8); RED BLOOD COUNT 4.37 10^6/ul (4.20-5.40); WHITE BLOOD COUNT 5.65 K/ul (4.6-10.2)
[2022-01-03] MEDS: SODIUM CHLORIDE 1,000 ML IV SCH ×2 (05:47→12:39)
[2022-01-03 05:48] LABS: ALANINE AMINOTRANSFERASE 17.7 U/L (0-35); ALBUMIN 3.21 g/dL (3.5-5.0); ALKALINE PHOSPHATASE 116.3 U/L (53-141); ASPARTATE AMINO TRANSFERASE 32.9 U/L (14-36); BILIRUBIN,TOTAL 0.46 mg/dL (0.2-1.3); CALCIUM 8.65 mg/dL (8.4-10.2); CARBON DIOXIDE 29.9 mmol/L (22-30.0); CHLORIDE 100.4 mmol/L (98-107); CREATININE 1.11 mg/dL (0.60-1.30); GLUCOSE 192.8 mg/dL (74-106); POTASSIUM 3.48 mmol/L (3.5-5.1); SODIUM 137.7 mmol/L (134.5-145); TOTAL PROTEIN 6.64 g/dL (6.3-8.2)
[2022-01-03 05:54] LABS: TROPONIN I 0.062 ng/ml (0.0000-0.120)
--- NOTE | 2022-01-03 08:42 | PCM.PROG ---
Date Seen by Provider: 01/03/22 Time Seen by Provider: 08:41 Subjective: sitting in bed--no complaints of chest pain or dyspnea or cough--"im fine"--no nursing staff concerns Objective: Vitals: T=97.9 F, P=98, R=16, GN=080/62, SPO2=98 HEENT: [perrl] Neck: [supple] Lungs: [clear] CVS: [rrr] Abdomen: [soft nt] Extremities: [] Neurological: [intact] Skin: [] Lab/Tests/Diagnostic Imaging: [] (1) Atrial fibrillation with RVR: Status: Acute Code(s): I48.91 - Unspecified atrial fibrillation SNOMED Code(s): 158017802580415 Assessment: K slightly low today Plan: awaiting consultation from dr grigsby----will replete potassium--see orders
[2022-01-03] MEDS ORDERED: K-DUR PO STA (08:45)
[2022-01-03] MEDS: LOVENOX SUBCUT SCH ×2 (09:09→21:12)
[2022-01-03] MEDS: CARDIZEM 125 MG in SODIUM CHLORIDE 100ML 100 ML IV SCH ×2 (09:09→21:38)
[2022-01-03] MEDS: ASPIRIN EC PO SCH (09:09)
[2022-01-03] MEDS: K-DUR PO SCH (17:29)
[2022-01-03] MEDS ORDERED: FLEXERIL PO SCH (21:00)
[2022-01-03] MEDS: FLEXERIL PO SCH (21:14)
[2022-01-04 05:14] LABS: HEMATOCRIT 35.4 % (37.0-47.0); HEMOGLOBIN 11.5 g/dl (12.0-16.0); MEAN CORPUSCULAR HEMOGLOBIN 28.5 pg (27.0-31.0); MEAN CORPUSCULAR HGB CONC 32.5 (31.8-35.4); MEAN CORPUSCULAR VOLUME 87.8 fl (81.0-99.0); PLATELET COUNT 403 10^3/uL (140-440); RDW COEFFICIENT OF VARIATION 14.6 % (11.6-14.8); RED BLOOD COUNT 4.03 10^6/ul (4.20-5.40)
[2022-01-04 05:15] LABS: ANISOCYTOSIS NOT PRESENT (NOT PRESENT)
[2022-01-04 05:31] LABS: BLOOD UREA NITROGEN 40.9 mg/dL (7-17); CALCIUM 8.79 mg/dL (8.4-10.2); CARBON DIOXIDE 29.9 mmol/L (22-30.0); CHLORIDE 105.2 mmol/L (98-107); CREATININE 1.1 mg/dL (0.60-1.30); GLUCOSE 115.6 mg/dL (74-106); POTASSIUM 4.49 mmol/L (3.5-5.1); SODIUM 139.8 mmol/L (134.5-145)
[2022-01-04] MEDS: CARDIZEM PO SCH ×3 (05:34→20:07)
[2022-01-04] MEDS: LASIX TAB PO SCH (05:35)
[2022-01-04] MEDS ORDERED: ELIQUIS PO SCH (09:00)
[2022-01-04] MEDS: PREDNISONE PO SCH (09:20)
[2022-01-04] MEDS: COREG PO SCH ×2 (09:20→17:33)
[2022-01-04] MEDS: K-DUR PO SCH ×2 (09:20→09:59)
[2022-01-04] MEDS: ELIQUIS PO SCH ×2 (09:20→20:06)
--- NOTE | 2022-01-04 09:31 | PCM.PROG ---
Attending Provider: ATTENDING PROVIDER: Dr. KEVYN DELGADO DATE OF SERVICE: 01/04/22 SUBJECTIVE: This 86 year old /WHITE F was hospitalized 01/01/22 with atrial fibrillation with rapid ventricular response. The patient has been COVID positive since October, probably recurrence of it. The patient has decided to go home at discharge and has dropped the idea of being at the [facility]. REVIEW OF SYSTEMS: CONSTITUTIONAL: No night sweats. No fatigue, malaise, lethargy. No fever or chills. HEENT: Eyes: No visual changes. No eye pain. No eye discharge. ENT: No runny nose. No epistaxis. No sinus pain. No odynophagia. No congestion. RESPIRATORY: No cough, no congestion. No hemoptysis. No shortness of breath. CARDIOVASCULAR: No angina symptoms. No CHF symptoms. No atypical chest pain for CAD. No palpitations. No orthopnea.. GASTROINTESTINAL: No abdominal pain. No nausea or vomiting. No diarrhea or constipation. No hematemesis. No hematochezia. GENITOURINARY: No urgency. No frequency. No dysuria. No hematuria. No obstructive symptoms. No discharge. No pain. No significant abnormal bleeding. MUSCULOSKELETAL: No musculoskeletal pain; no joint swelling. NEUROLOGICAL: Awake, alert, oriented to time, place and person. No headache. No neck pain. No syncope. No seizures. No dizziness. PSYCHIATRIC: Not anxious. No depression. No suicidal thoughts. No homicidal thoughts. SKIN: No rash. No lesions. No wounds. ENDOCRINE: No unexplained weight loss. No weight gain. HEMATOLOGIC/LYMPHATIC: No anemia. No purpura. No petechiae. No prolonged or excessive bleeding. No palpable lymph nodes. PHYSICAL EXAMINATION: GENERAL: The patient is awake, alert and oriented, sitting in bed in no distress. VITAL SIGNS: Temperature 98.0 F, Pulse 92, Respiratory Rate 16, BP 116/59, Pulse Ox 96% HEENT: Head normocephalic, atraumatic. Eyes: Extraocular muscles are intact. Pupils are equal, round and reactive to light and accommodation. Ears: No lesi ons. Nose appeared normal. Throat: No exudate or erythema. NECK: Supple. No JVD, no carotid bruit. No lymphadenopathy or thyromegaly. LUNGS: Clear to auscultation. Percussion note normal. Chest symmetrical. HEART: S1, S2, no S3. No murmurs. No cyanosis or clubbing. No ascites. Pulses: Dorsalis pedis and posterior tibial pulses +1 to +2 both sides. ABDOMEN: Soft. Non-tender. Bowel sounds active. No CVA tenderness. No mass felt. EXTREMITIES: No edema. Full range of motion of all extremities, equal. NEUROLOGIC: No focal deficit. Cranial nerves II through XII are grossly intact. No headache, no double vision or headache. SKIN: Warm and dry. Intact. Turgor-normal. LYMPHATIC: No palpable lymph nodes/no lymphedema. MUSCULOSKELETAL: Normal joints with no swelling. Muscle tone is normal. LAB REVIEW: 01/04/22 05:05 01/04/22 05:05 01/04/22 05:05: Sodium 139.8, Potassium 4.49, Chloride 105.2, Carbon Dioxide 29.9, Anion Gap 9.19, BUN 40.9 H, Creatinine 1.10, Estimated GFR (MDRD) 47.00, BUN/Creatinine Ratio 37.18, Glucose 115.6 H D, Calcium 8.79 01/04/22 05:05: WBC 9.40, RBC 4.03 L, Hgb 11.5 L, Hct 35.4 L, MCV 87.8, MCH 28.5, MCHC 32.5, RDW Coeff of Chucky 14.6, Plt Count 403, Neutrophils % (Manual) 67.0, Lymphocytes % (Manual) 17.0, Monocytes % (Manual) 12.0 H, Eosinophils % (Manual) 4.0, Anisocytosis Not present ASSESSMENT: Please see below. 1. Atrial fibrillation with normal ventricular response but the patient does get faster rate with little exertion. PLAN: 1. Coreg 3.125 BID 2. Continue Cardizem 3. Discontinue Lovenox 4. Eliquis 5mg PO BID 5. Atrial fibrillation discussed and side effects with GI bleed and intracranial bleed. No NSAIDS. 6. Continue rest of medications. Plan and coordination of the patient's care discussed in the presence of Pit Inspector and nurse. SCRIBED BY: FERNY PEREZ Principal Archaeologist scribed while in presence of service performed by Dr. KEVYN DELGADO on 01/04/22 ([id number])
[2022-01-04] MEDS: ASPIRIN EC PO SCH (09:59)
--- NOTE | 2022-01-04 10:54 | ECHO2D ---
Date of Exam: 01/03/2022 Ordering Physician: DR. KEVYN DELGADO Room #: SCU-2 Reason for Echo: NEW ONSET ATRIAL FIBRILLATION M-Mode Normal Adult Results LV Dimensions Normal Adult Results AoV Opening excursions >1.6 >1.6 LVEDD-base- 3.5-5.8 3.4 Ao root dimensions 2.0-3.7 3.2 LVESD-base- 3.1-4.6 L. Atrium dimensions 1.9-3.8 4.2 Post. Wall thickness 0.8-1.1 1.0 IV septum (thickness) 0.7-1.2 1.0 Post. Wall excursion 0.72-1.3 NORMAL Septal motion NORMAL Systolic motion R. Ventricular cavity 1.5-2.0 3.5 LVEF 60% 71% Paradoxical septal wall motion NORMAL 2-D : 2-D M Mode Echocardiogram was performed using apical four chamber and left parasternal long and short axis views. Mitral, tricuspid and aortic valves appear to be normal. Contractility of the left ventricle seems to be normal, so is the cavity size. ENLARGED LEFT ATRIAL CAVITY AND RIGHT VENTRICLE CAVITY. Aortic root appears to be normal. There is no pericardial effusion. There is no thrombus noted in the left ventricle or left atrial cavity. COLOR FLOW: MILD MITRAL REGURGITATION M-MODE: MV: NORMAL AV: NORMAL TV: NORMAL PV: CHAMBER SIZE: ENLARGED LEFT ATRIAL CAVITY AND RIGHT VENTRICLE CAVITY WALL MOTION: NORMAL PERICARDIUM: NORMAL INTERPRETATION: 1. ENLARGED LEFT ATRIAL CAVITY AND RIGHT VENTRICLE CAVITY 2. NORMAL LEFT VENTRICLE SIZE AND LEFT VENTRICLE CONTRACTILITY 3. MILD MITRAL REGURGITATION 4. NORMAL VALVES MTDD
--- NOTE | 2022-01-04 13:21 | CONS ---
DATE OF CONSULTATION: 01/02/22 REASON FOR CONSULTATION: Atrial fibrillation with rapid ventricular response. HISTORY OF PRESENT ILLNESS: 86 year old white female who came to the emergency room with nonspecific complaints. The patient as usual had complaint of having weakness of the left upper and lower extremities and a lot of complaints on the left side as the patient has for past several years. The patient has been treated with Azithromycin and steroids. She is COVID positive. Has mentioned that patient is poor historian also said that she had palpitation and chest discomfort on the left side. REVIEW OF SYSTEMS: CONSTITUTIONAL: No night sweats. No fatigue, malaise, lethargy. No fever or chills. HEENT: Eyes: No visual changes. No eye pain. No eye discharge. ENT: No sinus drainage. No epistaxis. No sinus pain. No sore throat. No odynophagia. No ear pain. No congestion. RESPIRATORY: No cough, no congestion. No hemoptysis. Mild shortness of breath. CARDIOVASCULAR: No angina symptoms. No CHF symptoms. No atypical chest pain for CAD. No palpitations. No orthopnea. GASTROINTESTINAL: No abdominal pain. No nausea or vomiting. No diarrhea or constipation. No hematemesis. No hematochezia. Poor appetite. GENITOURINARY: No urgency. No frequency. No dysuria. No hematuria. No obstructive symptoms. No discharge. No pain. No significant abnormal bleeding. MUSCULOSKELETAL: No musculoskeletal pain. No joint swelling. Chest tightness and palpitations. Weakness of extremities. NEUROLOGICAL: No headache. No neck pain. No syncope. No seizures. No dizziness. PSYCHIATRIC: Not anxious. No depression. No suicidal thoughts. No homicidal thoughts. SKIN: No rash. No lesions. No wounds. ENDOCRINE: No unexplained weight loss. No weight gain. HEMATOLOGIC/LYMPHATIC: No anemia. No purpura. No petechiae. No prolonged or excessive bleeding. No palpable lymph nodes. MEDICATIONS: Hydrocodone PRN for pain Aspirin Cyclobenzaprine Diltiazem 30mg twice a day Lasix 20mg PO daily Prednisone 5mg PO every other day ALLERGIES: Animal dander Morphine Multani Losartan Alcohol Hair dye Seafood. PAST MEDICAL HISTORY/PAST SURGICAL HISTORY: History of temporal arteritis for which has been on Prednisone for a number of years Hypertension Generalized osteoarthritis Osteoporosis SOCIAL/PERSONAL/FAMILY HISTORY: The patient is and lives by herself with help. Nonsmoker. No alcohol abuse. Does all activity of daily living. PHYSICAL EXAMINATION: VITAL SIGNS: Temperature 98.2, pulse 110 irregular, respiratory rate 15, blood pressure 117/56 and pulse ox 96% on room air. HEENT: Head normocephalic, atraumatic. Eyes: Extraocular muscles are intact. Pupils are equal, round and reactive to light and accommodation. Ears: No lesions. Nose appeared normal. Throat: No exudate or erythema. NECK: Supple. No JVD, no carotid bruit. No lymphadenopathy or thyromegaly. LUNGS: Decreased breath sounds but clear to auscultation. Percussion note normal. Chest symmetrical. HEART: S1, S2, no S3. No murmurs. No cyanosis or clubbing. No ascites. Pulses: Dorsalis pedis and posterior tibial pulses +2 bilaterally. ABDOMEN: Soft. Nontender. Bowel sounds active. No CVA tenderness. No mass felt. EXTREMITIES: No edema. Full range of motion of all extremities, equal. NEUROLOGIC: No focal deficit. Cranial nerves II through XII are grossly intact. No headache, no double vision or headache. Normal. SKIN: Not dry. Intact. Turgor - normal. LYMPHATIC: No palpable lymph nodes/no lymphedema. MUSCULOSKELETAL: Normal joints with no swelling. Muscle tone is normal. LABS: Atrial blood gasses pH 7.57, pO2 70, pCo2 40, pH 7.57 with 96% saturation on room air. Troponin negative. T4 TSH normal. PROBNP 2,210. GFR 48cc. BUN 38, hgb 13, hct 40, WBC 9,000 normal differential, monocyte count mildly elevated. Creatinine 1, BUN 46, sodium [address] scan of the head chronic small vessel disease. Chest x-ray scattered reticular nodular densities, rule out pneumonitis. EKG atrial fibrillation with rapid ventricular response. ASSESSMENT: 1. COVID 19 positive status with weakness, generalized complaints 2. Atrial fibrillation with rapid ventricular response with palpitation and chest pressure 3. Renal azotemia with creatinine of 1.1, BUN 48. 4. History of temporal arteritis 5. Chronic lung disease 6. History of PAC RECOMMENDATIONS: 1. Case was discussed on 01/01/22 with ER attending agreed with Thong christopher. The rate was brought down to 110 from 160, was practically asymptomatic 2. Routine telemetry orders to rule out any [place] or ischemia. So far cardiac markers are negative. 3. Continue Lasix 20mg PO daily, no evidence of any CHF 4. T4 TSH has already been done and reported normal 5. CBC and CMP 6. Lovenox 50mg Q 12 hours 7. The patient will be educated about atrial fibrillation and it's complications 8. The patient is atrial fibrillation with CHADS II VASC score of 4. 9. Telemetry 10. Echocardiogram to evaluate LV function, LA cavity size, LV cavity size and valvular structures 11. Thanks for referral, will follow. VIVEK
--- NOTE | 2022-01-04 13:32 | CONS ---
DATE OF SERVICE: 01/03/22 CONSULT FOLLOWUP SUBJECTIVE: 86 year old white female hospitalized with atrial fibrillation with rapid ventricular response. The patient is also COVID positive. Says she is feeling a lot better, anxious to go home. REVIEW OF SYSTEMS: CONSTITUTIONAL: No night sweats. No fatigue, malaise, lethargy. No fever or chills. HEENT: Eyes: No visual changes. No eye pain. No eye discharge. ENT: No runny nose. No epistaxis. No sinus pain. No sore throat. No odynophagia. No ear pain. No congestion. RESPIRATORY: No cough, no congestion. No hemoptysis. CARDIOVASCULAR: No angina symptoms. No CHF symptoms. No atypical chest pain for CAD. No palpitations. No shortness of breath. GASTROINTESTINAL: No abdominal pain. No nausea or vomiting. No diarrhea or constipation. No hematemesis. No hematochezia. GENITOURINARY: No urgency. No frequency. No dysuria. No hematuria. No obstructive symptoms. No discharge. No pain. No significant abnormal bleeding. MUSCULOSKELETAL: No musculoskeletal pain. No joint swelling. No arthritis. NEUROLOGICAL: No headache. No neck pain. No syncope. No seizures. No dizziness. PSYCHIATRIC: Not anxious. No depression. No suicidal thoughts. No homicidal thoughts. SKIN: No rash. No lesions. No wounds. ENDOCRINE: No unexplained weight loss. No weight gain. HEMATOLOGIC/LYMPHATIC: No anemia. No purpura. No petechiae. No prolonged or excessive bleeding. No palpable lymph nodes. PHYSICAL EXAMINATION: VITAL SIGNS: Temperature 97.9, pulse 95 irregular, respiratory rate 18, blood pressure 108/62 and pulse ox 98%. HEENT: Head normocephalic, atraumatic. Eyes: Extraocular muscles are intact. Pupils are equal, round and reactive to light and accommodation. Ears: No lesions. Nose appeared normal. Throat: No exudate or erythema. NECK: Supple. No JVD, no carotid bruit. No lymphadenopathy or thyromegaly. LUNGS: Decreased breath sounds but clear to auscultation. Percussion note normal. Chest symmetrical. HEART: S1, S2, no S3. No murmur. No cyanosis or clubbing. No ascites. Pulses: Dorsalis pedis and posterior tibial pulses +1 to +2 bilaterally. ABDOMEN: Soft. Nontender. Bowel sounds active. No CVA tenderness. No mass felt. EXTREMITIES: No edema. Full range of motion of all extremities, equal. NEUROLOGIC: No focal deficit. Cranial nerves II through XII are grossly intact. No headache, no double vision or headache. SKIN: Not dry. Intact. Turgor - normal. LYMPHATIC: No palpable lymph nodes/no lymphedema. MUSCULOSKELETAL: Normal joints with no swelling. Muscle tone is normal. LABS: Hgb 12.4, hct 37, WBC 5,600 normal differential, creatinine 1.1, BUN 37, potassium 3.4 ASSESSMENT: 1. Atrial fibrillation with rapid ventricular response seems to be under control. The patient was on Cardizem drip which was discontinued because of the hypotension type of situation and also the patient is already on PO Cardizem 60mg TID. More or less acceptable at rest. The patient's rate is 70-90 per minute. With little exertion the rate goes up. 2. COVID 19 status with shortness of breath, weakness. The patient given history of having COVID in middle of October and then again and at that time she took all the antibiotics and treatment but again she says that the COVID symptoms have come back. 3. Hypokalemia, borderline RECOMMENDATIONS: 1. Give K-tab 20meq twice a day 2. Carotid scan for dizziness 3. Atrial fibrillation and complications discussed in detail. Also complications of Eliquis discussed; GI bleed and intracranial bleed. She will think about it. 4. The patient has been seen on consultation. The patient was my patient but was hospitalized under Hospitalist. I talked to Dr. Smith and the patient is going to be transferred to my service. The patient wants to consider going to the group home. Discussed the nursing homes in detail. The patient wants to go to [facility].We will accept the patient to my service. [facility]
[2022-01-04] MEDS: NORCO 10-325 PO PRN (20:07)
[2022-01-05] MEDS: FLEXERIL PO SCH ×2 (00:20→20:21)
[2022-01-05 04:55] LABS: ANISOCYTOSIS NOT PRESENT (NOT PRESENT); HEMATOCRIT 37.4 % (37.0-47.0); HEMOGLOBIN 11.7 g/dl (12.0-16.0); MEAN CORPUSCULAR HEMOGLOBIN 27.9 pg (27.0-31.0); MEAN CORPUSCULAR HGB CONC 31.3 (31.8-35.4); PLATELET COUNT 415 10^3/uL (140-440); RDW COEFFICIENT OF VARIATION 14.9 % (11.6-14.8); WHITE BLOOD COUNT 7.23 K/ul (4.6-10.2)
[2022-01-05 05:07] LABS: BLOOD UREA NITROGEN 39.7 mg/dL (7-17); CALCIUM 8.82 mg/dL (8.4-10.2); CARBON DIOXIDE 30.7 mmol/L (22-30.0); CHLORIDE 105.1 mmol/L (98-107); CREATININE 1.16 mg/dL (0.60-1.30); GLUCOSE 93.4 mg/dL (74-106); POTASSIUM 4.96 mmol/L (3.5-5.1); SODIUM 138.1 mmol/L (134.5-145)
[2022-01-05] MEDS: CARDIZEM PO SCH ×3 (05:33→20:21)
[2022-01-05] MEDS: LASIX TAB PO SCH (05:33)
--- NOTE | 2022-01-05 09:30 | PCM.PROG ---
Attending Provider: ATTENDING PROVIDER: Dr. KEVYN DELGADO This patient is seen with Mary Valenzuela, Nurse Practitioner. DATE OF SERVICE: 01/05/22 SUBJECTIVE: This 86 year old /WHITE F was hospitalized 01/01/22. Heart rate 90s to 120s, more controlled. Seems to be tolerating Eliquis, hgb is stable at 11.7, eating well. Denies cough. Chest x-ray was abnormal. REVIEW OF SYSTEMS: CONSTITUTIONAL: No night sweats. No fatigue, malaise, lethargy. No fever or chills. Weakness. HEENT: Eyes: No visual changes. No eye pain. No eye discharge. ENT: No runny nose. No epistaxis. No sinus pain. No odynophagia. No congestion. RESPIRATORY: No cough, no congestion. No hemoptysis. No shortness of breath. CARDIOVASCULAR: No angina symptoms. No CHF symptoms. No atypical chest pain for CAD. Palpitations. No orthopnea.. GASTROINTESTINAL: No abdominal pain. No nausea or vomiting. No diarrhea or constipation. No hematemesis. No hematochezia. GENITOURINARY: No urgency. No frequency. No dysuria. No hematuria. No obstructive symptoms. No discharge. No pain. No significant abnormal bleeding. MUSCULOSKELETAL: No musculoskeletal pain; no joint swelling. NEUROLOGICAL: Awake, alert, oriented to time, place and person. No headache. No neck pain. No syncope. No seizures. No dizziness. PSYCHIATRIC: Not anxious. No depression. No suicidal thoughts. No homicidal thoughts. SKIN: No rash. No lesions. No wounds. ENDOCRINE: No unexplained weight loss. No weight gain. HEMATOLOGIC/LYMPHATIC: No anemia. No purpura. No petechiae. No prolonged or excessive bleeding. No palpable lymph nodes. PHYSICAL EXAMINATION: GENERAL: The patient is awake, alert and oriented, sitting in bed in no distress. VITAL SIGNS: Temperature 97.4 F, Pulse 89, Respiratory Rate 19, BP 121/71, Pulse Ox 97% HEENT: Head normocephalic, atraumatic. Eyes: Extraocular muscles are intact. Pupils are equal, round and reactive to light and accommodation. Ears: No lesions. Nose appeared normal. Throat: No exudate or erythema. NECK: Supple. No JVD, no carotid bruit. No lymphadenopathy or thyromegaly. LUNGS: Diminished breath sounds. Clear to auscultation. Percussion note normal. Chest symmetrical. HEART: S1, S2, no S3. No murmurs. Irregular heart rate. No cyanosis or clubbi ng. No ascites. Pulses: Dorsalis pedis and posterior tibial pulses +1 to +2 both sides. ABDOMEN: Soft. Non-tender. Bowel sounds active. No CVA tenderness. No mass felt. EXTREMITIES: No edema. Full range of motion of all extremities, equal. NEUROLOGIC: No focal deficit. Cranial nerves II through XII are grossly intact. No headache. No double vision. SKIN: Not dry. Intact. Turgor-normal. LYMPHATIC: No palpable lymph nodes/no lymphedema. MUSCULOSKELETAL: Normal joints with no swelling. Muscle tone is normal. LAB REVIEW: 01/05/22 04:50 01/05/22 04:50 01/05/22 04:50: Sodium 138.1, Potassium 4.96, Chloride 105.1, Carbon Dioxide 30.7 H, Anion Gap 7.26, BUN 39.7 H, Creatinine 1.16, Estimated GFR (MDRD) 45.00, BUN/Creatinine Ratio 34.22, Glucose 93.4, Calcium 8.82 01/05/22 04:50: WBC 7.23, RBC 4.20, Hgb 11.7 L, Hct 37.4, MCV 89.0, MCH 27.9, MCHC 31.3 L, RDW Coeff of Chucky 14.9 H, Plt Count 415, Neutrophils % (Manual) 66. 0, Lymphocytes % (Manual) 22.0, Monocytes % (Manual) 10.0, Reactive Lymphocytes 2.0, Anisocytosis Not present ASSESSMENT: Please see below. 1. New onset atrial fibrillation with RVR 2. COVID pneumonitis 3. Chronic kidney disease stage III 4. Chronic back pain PLAN: 1. Chest CT with and without Plan and coordination of the patient's care discussed in the presence of Dynamo Repairer and nurse. SCRIBED BY: Griffin NAVARRO scribed while in presence of service performed by Dr. Delgado/Mary Valenzuela APRN on 01/05/22 ([id number])
[2022-01-05] MEDS: ELIQUIS PO SCH ×2 (09:40→20:21)
[2022-01-05] MEDS: COREG PO SCH ×2 (09:40→17:16)
[2022-01-05] MEDS: K-DUR PO SCH (09:42)
[2022-01-05] MEDS ORDERED: LANOXIN IVP ONE (10:45)
--- NOTE | 2022-01-05 17:48 | CT ---
EXAM: CT chest without contrast HISTORY: Short of breath, abnormal chest x-ray COMPARISON: 01/01/2022 chest x-ray. TECHNIQUE: Axial CT imaging of the chest was performed without contrast. Sagittal and coronal re-for mations were done to better evaluate anatomy. FINDINGS: Scattered peripheral opacities are present throughout the right upper lobe, inferior left upper lobe and bilateral lower lobes. Questionable cavitation involving some of these nodular opacit ies. No pleural effusion. There is mild atherosclerotic calcification of the coronary arteries. Cardiac size is within normal limits. There is no pericardial effusion. There is no mediastinal lymphadenopathy. Limited visualization of the upper abdomen shows a simple exophytic cyst involving the left kidney. Small hiatal hernia. Chronic anterior compression fractures involving the lower thoracic/upper lumba r vertebral bodies. IMPRESSION: Scattered bilateral diffuse nodular opacities, right greater than left. This finding is likely infectious/inflammatory etiology versus less likely neoplastic. A follow-up noncontrast CT c hest in 3 months is recommended to assess resolution. All CT scans are performed using dose optimization techniques as appropriate to the performed exam an d include at least one of the following: Automated exposure control, adjustment of the mA and/or kV according t o size, and the use of iterative reconstruction technique.
[2022-01-05] MEDS: NORCO 10-325 PO PRN (20:21)
[2022-01-06 05:32] LABS: BASOPHILS # (AUTO) 0.1 K/uL (0-0.2); BASOPHILS % (AUTO) 0.6 % (0.0-3.0); EOSINOPHILS # (AUTO) 0.5 K/ul (0.0-0.7); EOSINOPHILS % (AUTO) 6.3 % (0.0-7.0); HEMATOCRIT 37.7 % (37.0-47.0); IMMATURE GRANULOCYTE % (AUTO) 0.4 % (0.0-5.0); LYMPHOCYTES % (AUTO) 24.2 (10.0-50.0); MEAN CORPUSCULAR HEMOGLOBIN 28.2 pg (27.0-31.0); MEAN CORPUSCULAR HGB CONC 31.8 (31.8-35.4); MEAN CORPUSCULAR VOLUME 88.7 fl (81.0-99.0); MONOCYTES # (AUTO) 0.9 K/uL (0.4-2.0); MONOCYTES % (AUTO) 10.6 (0-10); NEUTROPHILS # (AUTO) 4.8 K/ul (2.0-6.9); NEUTROPHILS % (AUTO) 57.9 % (42.2-75.2); PLATELET COUNT 438 10^3/uL (140-440); RDW COEFFICIENT OF VARIATION 14.7 % (11.6-14.8); RED BLOOD COUNT 4.25 10^6/ul (4.20-5.40); WHITE BLOOD COUNT 8.28 K/ul (4.6-10.2)
[2022-01-06 05:42] LABS: ALANINE AMINOTRANSFERASE 21.1 U/L (0-35); ALBUMIN 3.08 g/dL (3.5-5.0); ALKALINE PHOSPHATASE 108.6 U/L (53-141); ASPARTATE AMINO TRANSFERASE 32.7 U/L (14-36); BILIRUBIN,TOTAL 0.34 mg/dL (0.2-1.3); BLOOD UREA NITROGEN 40.2 mg/dL (7-17); CALCIUM 8.81 mg/dL (8.4-10.2); CREATININE 1.11 mg/dL (0.60-1.30); GLUCOSE 95.8 mg/dL (74-106); POTASSIUM 4.52 mmol/L (3.5-5.1); SODIUM 138.2 mmol/L (134.5-145); TOTAL PROTEIN 6.49 g/dL (6.3-8.2)
[2022-01-06] MEDS: LASIX TAB PO SCH (05:46)
[2022-01-06] MEDS: CARDIZEM PO SCH ×3 (05:46→20:11)
[2022-01-06] MEDS: LANOXIN PO SCH (08:47)
[2022-01-06] MEDS: ELIQUIS PO SCH ×2 (08:47→20:11)
[2022-01-06] MEDS: K-DUR PO SCH (08:47)
[2022-01-06] MEDS: COREG PO SCH ×2 (08:47→17:21)
[2022-01-06] MEDS: PREDNISONE PO SCH (08:56)
[2022-01-06] MEDS: NORCO 10-325 PO PRN (20:13)
[2022-01-06] MEDS: FLEXERIL PO SCH (21:04)
[2022-01-07 05:23] LABS: BASOPHILS # (AUTO) 0.1 K/uL (0-0.2); BASOPHILS % (AUTO) 0.4 % (0.0-3.0); EOSINOPHILS # (AUTO) 0.1 K/ul (0.0-0.7); EOSINOPHILS % (AUTO) 0.9 % (0.0-7.0); HEMATOCRIT 35.5 % (37.0-47.0); HEMOGLOBIN 11.4 g/dl (12.0-16.0); IMMATURE GRANULOCYTE % (AUTO) 0.3 % (0.0-5.0); LYMPHOCYTES # (AUTO) 2.3 K/uL (0.60-3.4); LYMPHOCYTES % (AUTO) 19.6 (10.0-50.0); MEAN CORPUSCULAR HEMOGLOBIN 28.7 pg (27.0-31.0); MEAN CORPUSCULAR HGB CONC 32.1 (31.8-35.4); MEAN CORPUSCULAR VOLUME 89.4 fl (81.0-99.0); MONOCYTES # (AUTO) 1.2 K/uL (0.4-2.0); MONOCYTES % (AUTO) 10.1 (0-10); NEUTROPHILS % (AUTO) 68.7 % (42.2-75.2); PLATELET COUNT 433 10^3/uL (140-440); RDW COEFFICIENT OF VARIATION 14.6 % (11.6-14.8); RED BLOOD COUNT 3.97 10^6/ul (4.20-5.40); WHITE BLOOD COUNT 11.62 K/ul (4.6-10.2)
[2022-01-07] MEDS: CARDIZEM PO SCH (05:35)
[2022-01-07] MEDS: LASIX TAB PO SCH (05:35)
[2022-01-07 05:40] LABS: ALBUMIN 3.07 g/dL (3.5-5.0); ALKALINE PHOSPHATASE 120.3 U/L (53-141); ASPARTATE AMINO TRANSFERASE 32.8 U/L (14-36); BILIRUBIN,TOTAL 0.39 mg/dL (0.2-1.3); BLOOD UREA NITROGEN 41.9 mg/dL (7-17); CALCIUM 8.91 mg/dL (8.4-10.2); CARBON DIOXIDE 32.7 mmol/L (22-30.0); CHLORIDE 101.5 mmol/L (98-107); CREATININE 1.31 mg/dL (0.60-1.30); GLUCOSE 94.1 mg/dL (74-106); POTASSIUM 4.73 mmol/L (3.5-5.1); SODIUM 138.5 mmol/L (134.5-145); TOTAL PROTEIN 6.56 g/dL (6.3-8.2)
[2022-01-07 05:46] VITALS: BP 97/54; TEMP 97.7
[2022-01-07] MEDS: NORCO 10-325 PO PRN (07:33)
[2022-01-07] MEDS: COREG PO SCH (09:54)
[2022-01-07] MEDS: K-DUR PO SCH (09:54)
[2022-01-07] MEDS: LANOXIN PO SCH (09:54)
[2022-01-07] MEDS: ELIQUIS PO SCH (09:55)
--- NOTE | 2022-01-07 10:41 | PCM.PROG ---
Attending Provider: ATTENDING PROVIDER: Dr. KEVYN DELGADO This patient is seen with Mary Valenzuela, Nurse Practitioner. DATE OF SERVICE: 01/07/22 SUBJECTIVE: This 86 year old /WHITE F was hospitalized 01/01/22. Heart rate is staying under 100, tolerating Digoxin. Ready for discharge home today. Blood pressure been stable. REVIEW OF SYSTEMS: CONSTITUTIONAL: No night sweats. Fatigue. No fever or chills. HEENT: Eyes: No visual changes. No eye pain. No eye discharge. ENT: No runny nose. No epistaxis. No sinus pain. No odynophagia. No congestion. RESPIRATORY: No cough, no congestion. No hemoptysis. No shortness of breath. CARDIOVASCULAR: No angina symptoms. No CHF symptoms. No atypical chest pain for CAD. No palpitations. No orthopnea.. GASTROINTESTINAL: No abdominal pain. No nausea or vomiting. No diarrhea or constipation. No hematemesis. No hematochezia. GENITOURINARY: No urgency. No frequency. No dysuria. No hematuria. No obstructive symptoms. No discharge. No pain. No significant abnormal bleeding. MUSCULOSKELETAL: No musculoskeletal pain; no joint swelling. NEUROLOGICAL: Awake, alert, oriented to time, place and person. No headache. No neck pain. No syncope. No seizures. No dizziness. PSYCHIATRIC: Not anxious. No depression. No suicidal thoughts. No homicidal thoughts. SKIN: No rash. No lesions. No wounds. ENDOCRINE: No unexplained weight loss. No weight gain. HEMATOLOGIC/LYMPHATIC: No anemia. No purpura. No petechiae. No prolonged or excessive bleeding. No palpable lymph nodes. PHYSICAL EXAMINATION: GENERAL: The patient is awake, alert and oriented, sitting in bed in no distress. VITAL SIGNS: Temperature 97.7 F, Pulse 100, Respiratory Rate 20, BP 97/54, Pulse Ox 99% HEENT: Head normocephalic, atraumatic. Eyes: Extraocular muscles are intact. Pupils are equal, round and reactive to light and accommodation. Ears: No lesions. Nose appeared normal. Throat: No exudate or erythema. NECK: Supple. No JVD, no carotid bruit. No lymphadenopathy or thyromegaly. LUNGS: Diminished breath sounds. Clear to auscultation. Percussion note normal. Chest symmetrical. HEART: S1, S2, no S3. Irregular heart rate. No murmurs. No cyanosis or clubbing. No ascites. Pulses: Dorsalis pedis and posterior tibial pulses +1 to +2 both sides. ABDOMEN: Soft. Non-tender. Bowel sounds active. No CVA tenderness. No mass felt. EXTREMITIES: No edema. Full range of motion of all extremities, equal. NEUROLOGIC: No focal deficit. Cranial nerves II through XII are grossly intact. No headache. No double vision. SKIN: Not dry. Intact. Turgor-normal. LYMPHATIC: No palpable lymph nodes/no lymphedema. MUSCULOSKELETAL: Normal joints with no swelling. Muscle tone is normal. LAB REVIEW: 01/07/22 04:40 01/07/22 04:40 01/07/22 04:40: Sodium 138.5, Potassium 4.73, Chloride 101.5, Carbon Dioxide 32.7 H, Anion Gap 9.03, BUN 41.9 H, Creatinine 1.31 H, Estimated GFR (MDRD) 39.00, BUN/Creatinine Ratio 31.98, Glucose 94.1, Calcium 8.91, Total Bilirubin 0.39, AST 32.8, ALT 23.0, Alkaline Phosphatase 120.3, Total Protein 6.56, Albumin 3.07 L, Globulin 3.49, Albumin/Globulin Ratio 0.87 01/07/22 04:40: WBC 11.62 H, RBC 3.97 L, Hgb 11.4 L, Hct 35.5 L, MCV 89.4, MCH 28.7, MCHC 32.1, RDW Coeff of Chucky 14.6, Plt Count 433, Immature Gran % (Auto) 0.3, Neut % (Auto) 68.7, Lymph % (Auto) 19.6, Hamlin % (Auto) 10.1 H, Eos % (Auto) 0.9, Baso % (Auto) 0.4, Neut # (Auto) 8.0 H, Lymph # (Auto) 2.3, Hamlin # (Auto) 1.2, Eos # (Auto) 0.1, Baso # (Auto) 0.1, Immature Gran # (Auto) 0.0 ASSESSMENT: Please see below. 1. New onset atrial fibrillation with RVR. Rate now controlled 2. COVID 19 3. Multiple lung nodules, Repeat chest CT in three months 4. Long history of noncompliance of medications, lifestyle and followup. PLAN: 1. Patient will be discharge home 2. No Aspirin 3. Risk of bleeding discussed with Maral 4. Avoid NSAIDS 5. Continue on Cardizem and Digoxin 6. Risk of CVA with atrial fibrillation discussed 7. Fall prevention 8. Followup in office next week. Plan and coordination of the patient's care discussed in the presence of Social Media Campaign Manager and nurse. SCRIBED BY: Bharat NAVARROist scribed while in presence of service performed by Dr. Delgado/Mary Valenzuela APRN on 01/07/22 ([id number])
--- NOTE | 2022-01-07 10:46 | DS ---
DATE OF SERVICE: 01/07/22 FINAL DIAGNOSIS: 1. New onset atrial fibrillation with RVR. Rate now controlled 2. COVID 19 3. Multiple lung nodules, Repeat chest CT in three months 4. Long history of noncompliance of medications, lifestyle and followup. DISCHARGE INSTRUCTIONS: Discharge home today. Followup in Dr. Pitt Office January 14 at 11:30am. Bella Schrader contacted and a referral was placed. Carotis ultrasound 01/12/22 at 10:30. CT of chest with and without contrast 04/13/22 at 9am; must be NPO after midnight prior to test. MEDICATIONS AT DISCHARGE: Vitamin D2 50,00 unit PO Q month Cyclobenzaprine 10mg Po bedtime Furosemide 20mg PO daily Prednisone 5mg PO every other day NEW PRESCRIPTIONS: Lanoxin 125mcg PO daily K-tab 20meq PO daily Eliquis 2.5mg PO BID Coreg 3.125mg PO BID Hydrocodone-Acetaminophen 1 tablet PO BID PRN Cardizem 90mg PO BID DISCONTINUED MEDICATIONS: Aspirin 81mg Hydrocodone-Acetaminophen Diltiazem HOSPITAL COURSE: 86 year old white female admitted from emergency room was incidentally found to be COVID positive although asymptomatic. She came to ER with shortness of breath, palpitations and was found to be in new onset of atrial fibrillation with RVR. Initially on Cardizem drip, was weaned to 60mg PO TID and started on Eliquis. Still having increased rate but lower blood pressure she was started on Digoxin. Heart rate has been controlled and blood pressure is stable. Hgb is stable and has tolerated Eliquis. She does have risk of fall and is over 82 was initiated on 2.5mg. She has been instructed to followup in office next week. Avoid NSAIDS. Risk with atrial fibrillation discussed. Risks of bleeding discussed with Eliquis. TIME SPENT: More than 60 minutes. MTDD
--- NOTE | 2022-01-07 11:32 | PN ---
DATE OF SERVICE: 01/05/22 SUBJECTIVE: 86 year old white female was seen originally on consultation now she is under my services hospitalized with atrial fibrillation with rapid ventricular response. She was also COVID 19 positive. The patient's condition has improved. Her rate is more or less well controlled. Cardizem has been added. TIME SPENT: More than 30 minutes. Plan and coordination of the patient's care discussed in the presence of nurse. VIVEK
--- NOTE | 2022-01-11 11:40 | PN ---
DATE OF SERVICE: 01/07/22 SUBJECTIVE: The patient was seen and examined with the Nurse Practitioner. The patient's condition has improved. Atrial fibrillation has normal ventricular response. COVID 19 asymptomatic now. Condition is stable. All the medications discussed. Atrial fibrillation with complications discussed. Eliquis with complications discussed. The patient is oriented to time, place and person. Condition at the time of discharge is stable. TIME SPENT: More than 30 minutes. Plan and coordination of the patient's care discussed in the presence of nurse. VIVEK
--- NOTE | 2022-01-11 11:40 | PN ---
ADMISSION DAY: LEVEL 5 REST OF THEM: Intermediate FINAL DAY: D as in discharge. MTDD
== END 2022-01-07 13:00 | disposition home or self-care (01) | DRG 308 ==
LOC: ED 20:49 → SCU 22:54
PROVIDERS: ADMIT Internal Medicine; ATTEND Internal Medicine
DX: Z91.19 Patient's noncompliance with other medical treatment and regimen; R79.89 Other specified abnormal findings of blood chemistry; R00.2 Palpitations; R91.8 Other nonspecific abnormal finding of lung field; Z51.81 Encounter for therapeutic drug level monitoring; E87.6 Hypokalemia; I48.91 Unspecified atrial fibrillation; Z91.14 Patient's other noncompliance with medication regimen; J12.82 Pneumonia due to coronavirus disease 2019; U07.1 COVID-19; M54.50 Low back pain, unspecified; J44.9 Chronic obstructive pulmonary disease, unspecified; I10 Essential (primary) hypertension; Z79.899 Other long term (current) drug therapy; N18.30 Chronic kidney disease, stage 3 unspecified; R53.1 Weakness; Z79.82 Long term (current) use of aspirin